=== PATIENT | female | born 1990 | race Caucasian/White ===

== ENCOUNTER 2018-01-01 07:13 | Emergency (ER) | payer MEDICAID, SELFPAY ==
[2018-01-01 07:14] VITALS: BP 143/93; PULSE 75; RESP 17; TEMP 37.1; O2SAT 100; BMI 27.2
--- NOTE | 2018-01-01 07:29 | EKG12_ITS ---
Test Reason : DIZZINESS Blood Pressure : / mmHG Vent. Rate : 066 BPM Atrial Rate : 066 BPM P-R Int : 116 ms QRS Dur : 076 ms QT Int : 376 ms P-R-T Axes : -06 006 026 degrees QTc Int : 394 ms Normal sinus rhythm Normal ECG Confirmed by GLADIS JOHNSON, CRIS ([id number]), society editor REGINA BELL ([id number] on 01/02/2018 3:16:05 PM Referred By: ANJANA Confirmed By:CRIS GRIFFITH MD
--- NOTE | 2018-01-01 07:32 | RAD_ITS ---
STUDY: X-RAY CHEST REASON FOR EXAM: Female, 27 years old. Dizziness and blurred vision. Chills. TECHNIQUE: Single AP portable view of the chest. COMPARISON: Comparison is made with prior study dated March 05, 2017. FINDINGS: The lungs are clear and expanded. There is no demonstrated pleural abnormality. Normal size heart. Normal mediastinum and krystal. Normal visualized pulmonary arteries. Normal visualized aortic arch and descending thoracic aorta. Normal visualized thoracic spine. Normal visualized ribs, clavicles, and shoulders. There is no demonstrated abnormality of the visualized soft tissue structures of the upper abdomen. RAD/Chest 1 View (Portable) IMPRESSION: Normal x-ray examination of the chest. Electronically Signed: Isrrael Lee MD at 8:13 EDT Tel [phone], Service support ,
--- NOTE | 2018-01-01 07:32 | ED.VISSUMM ---
- ER Visit Summary Date of Service: 01/01/18 Chief Complaint: Dizziness History of Present Illness: The patient is a 27 F presents with dizziness which started an hour prior to arrival. Patient states she feels lightheaded but has not passed out. She has blurry vision in both of her eyes. She put her glasses on and that helps some but she continues to have blurry vision. She denies double vision or eye pain. She complains of numbness and weakness in both legs which is chronic. She is on gabapentin. She has chills, nausea, diarrhea. She has a mild cough. She is a smoker. Physical Examination: Vitals are stable. Patient is afebrile. Alert no acute distress. HEENT exam is unremarkable. Neck is supple. No meningismus Lungs are clear and equal bilaterally. Heart is regular rate and rhythm. Abdomen is soft nontender nondistended. Extremities are unremarkable. Skin is warm and dry. No focal neurologic deficit. Normal strength and sensation Remainder of exam is unremarkable. Emergency Department Course and Treatment: Patient given IV fluids, Zofran. EKG is sinus rate of 66 with no acute ischemic changes. Chest x-ray shows no acute process. CBC is normal except for white count 12.7. Chemistries unremarkable. Urinalysis is normal. Patient is feeling improved following fluids and medications. She states she has Zofran at home. She is advised to follow-up with her primary care physician. She is advised return to ED for any worsening complaints. Disposition: Discharge home Impression: Dizziness, resolved This note was generated with [employer] dictation software. It may contain incorrect words, spelling, and punctuation that were not noted in review of the chart prior to signing ED Disposition - Plan for ED Patient: Chief Complaint: Dizziness Referrals: Estela Toribio MD [Primary Care Provider] -
[2018-01-01 08:15] LABS: Bacteria 0 SEEN /hpf (None Seen); Mucous, Urine 0 SEEN /hpf (<or=2+); White Blood Cells 0 SEEN /hpf (0-5)
[2018-01-01 08:36] LABS: Color, Urine Straw (Yellow); Glucose, Dipstick Normal (Normal); Ketone-Dipstick Negative (Negative); Leukocyte Esterase-Dipstick Negative /ul (Negative); Nitrite-Dipstick Negative (Negative); Occult Blood-Urine Negative /ul (Negative); Protein-Dipstick Negative (Negative); Specific Gravity, Urine 1.005 (1.002-1.030); Urine Bilirubin Dipstick Negative (Negative); Urine Clarity Sl. Cloudy (Clear); Urine Urobilinogen Normal (Normal); Urine pH 6.5 (5.0 - 8.0)
[2018-01-01 08:45] LABS: Red Blood Cells-Urine 0-5 SEEN /hpf (0-5); Squamous Epithelial Cells - UA 0-5 SEEN /hpf (5-10)
[2018-01-01 09:24] VITALS: BP 117/75; BP 120/88; BP 132/92; PULSE 62; PULSE 74; PULSE 78
[2018-01-01] MEDS: 0.9% Normal Saline 1,000 ML 1000 ML IV (09:25)
[2018-01-01 09:28] VITALS: BP 132/92; PULSE 67
[2018-01-01 09:36] LABS: Absolute Lymphocyte Count 2.12 X10^3/ul (0.83-4.51); Absolute Neutrophil Count 9.9 X10^3/uL (2.0-7.7); Basophil# 0.03 X10^3/uL; Basophil% 0.2 % (0-1); Eosinophil# 0.08 X10^3/uL; Eosinophils% 0.6 % (0-5); Hemoglobin 13.8 g/dl (12.0-15.0); Lymphocyte # 2.12 X10^3/ul (4.0); Lymphocyte % 16.7 % (19-41); Mean Corp Hgb Conc 32.9 g/gl (32-36); Mean Corpuscular Hgb 28.4 pg (27.0-32.0); Mean Corpuscular Volume 86.4 fL (81-99); Monocyte# 0.52 X10^3/uL; Monocyte% 4.1 % (0-10); Neutrophil # 9.94 X10^3/uL (2.7-7.7); Neutrophil % 78.2 % (47-70); POSITIVE COUNT NO; POSITIVE DIFFERENTIAL NO; POSITIVE MORPHOLOGY NO; Platelet Count 220 K/mm3 (150-450); RBC Distribution Width SD 47.8 fl (35.1-43.9); Red Blood Count 4.86 M/mm3 (4.2-5.4); White Blood Count 12.7 K/mm3 (4.4-11.0)
[2018-01-01 09:46] LABS: Anion Gap 5 (5-15); BUN 11 mg/dL (7-18); BUN/Creat Ratio 15.7 RATIO (10-20); Chloride 112 mmol/L (98-107); EST Glomerular Filtration Rate 106 mL/min (>60); Est Glom Filt Rate - Afr Amer 128 mL/min (>60); Glucose 88 mg/dL (74-106); Sodium Level 144 mmol/L (136-145)
--- NOTE | 2018-01-01 10:37 | ED.DEP ---
ED Disposition - Plan for ED Patient: Chief Complaint: Dizziness Instructions: ED Dizziness [facility] Referrals: Estela Toribio MD [Primary Care Provider] -
[2018-01-01 10:48] VITALS: BP 103/67; PULSE 63; RESP 18
== END 2018-01-01 11:00 | disposition home or self-care (01) ==
PROVIDERS: Emergency Provider Emergency Medicine; Family Provider Internal Medicine; PCP Internal Medicine
DX: R42 Dizziness and giddiness (principal); R19.7 Diarrhea, unspecified; F17.200 Nicotine dependence, unspecified, uncomplicated; Z79.899 Other long term (current) drug therapy
CPT/HCPCS: 71045; 80048; 81001; 85025; 93005; 96360; 99285; J7030; A4216

== ENCOUNTER 2018-04-24 19:07 | Emergency (ER) | payer MEDICAID, SELFPAY ==
[2018-04-24 19:10] VITALS: BP 122/56; PULSE 103; PULSE 110; RESP 14; RESP 18; TEMP 36.9; O2SAT 100; O2SAT 99; BMI 29.1
--- NOTE | 2018-04-24 19:35 | CT_ITS ---
STUDY: CT ABDOMEN AND PELVIS WITHOUT CONTRAST REASON FOR EXAM: Female, 28 years old. Right lower quadrant pain RADIATION DOSAGE (If Supplied By Facility): CTDIvol = ( 8.15 ) mGy, DLP = ( 391.02 ) mGycm TECHNIQUE: Transaxial images were obtained from the dome of the diaphragm to the symphysis pubis without oral contrast, and without intravenous contrast. Sagittal and coronal images were reconstructed. Individualized dose optimization techniques were used for this CT. COMPARISON: 02/13/2016 FINDINGS: Evaluation of the abdominal viscera is limited in the absence of intravenous contrast. The visualized lung bases are clear. The visualized portions of the heart and pericardium are within normal limits. There are no calcified gallstones present. The liver demonstrates an unremarkable unenhanced appearance. There are stable calcified granulomata noted in the spleen. The pancreas demonstrates an unremarkable unenhanced appearance. The adrenal glands are within normal limits. There are no renal or ureteral stones. There is no hydronephrosis. Normal visualized stomach. There is no bowel obstruction or inflammation. There are surgical clips in the region of the appendix consistent with a prior appendectomy. The aorta is normal in caliber. There is no abdominal or pelvic free air, free fluid, fluid collection or lymphadenopathy. There are no destructive osseous lesions. CT/Abdomen/Pelvis without Cont IMPRESSION: No acute abdominal or pelvic pathology demonstrated on this noncontrast CT. Electronically Signed: Tacho Chen, at 20:52 EDT Tel , Service support ,
[2018-04-24 20:00] LABS: Absolute Lymphocyte Count 3.44 X10^3/ul (0.83-4.51); Absolute Neutrophil Count 11.8 X10^3/uL (2.0-7.7); Basophil# 0.04 X10^3/uL; Basophil% 0.2 % (0-1); Eosinophil# 0.12 X10^3/uL; Eosinophils% 0.7 % (0-5); Hematocrit 43.7 % (37-47); Hemoglobin 14.7 g/dl (12.0-15.0); Lymphocyte # 3.44 X10^3/ul (4.0); Lymphocyte % 21.3 % (19-41); Mean Corp Hgb Conc 33.6 g/gl (32-36); Mean Corpuscular Hgb 29.8 pg (27.0-32.0); Mean Corpuscular Volume 88.5 fL (81-99); Mean Platelet Vol. 10.6 fl (6.2-12.0); Monocyte# 0.73 X10^3/uL; Monocyte% 4.5 % (0-10); Neutrophil # 11.82 X10^3/uL (2.7-7.7); Neutrophil % 73.2 % (47-70); Platelet Count 263 K/mm3 (150-450); RBC Distribution Width CV 12.5 % (11.6-14.6); RBC Distribution Width SD 39.9 fl (35.1-43.9); Red Blood Count 4.94 M/mm3 (4.2-5.4); White Blood Count 16.2 K/mm3 (4.4-11.0)
[2018-04-24] MEDS: 0.9% Normal Saline 1,000 ML 125 ML IV (20:01)
[2018-04-24] MEDS: proMETHazine 25 MG/ML Syringe 6.25 MG IV (20:01)
[2018-04-24 20:02] LABS: POSITIVE COUNT NO; POSITIVE DIFFERENTIAL NO; POSITIVE MORPHOLOGY NO
[2018-04-24] MEDS: HYDROmorphone 1 MG/ML Syringe IV (20:02)
[2018-04-24] MEDS: Ketorolac 30 MG/ML Syringe IV (20:02)
[2018-04-24 20:16] LABS: ALB/GLOB Ratio 1.3 RATIO (0.9-2.4); AST(SGOT) 10 U/L (15-37); Alanine Aminotransfer ALT/SGPT 19 U/L (13-56); Albumin, Serum 4.6 g/dL (3.2-5.0); Alkaline Phosphatase 87 U/L (45-117); Anion Gap 6 (5-15); BUN 13 mg/dL (7-18); BUN/Creat Ratio 14.1 RATIO (10-20); Chloride 106 mmol/L (98-107); Creatinine, Serum 0.92 mg/dL (0.55-1.02); EST Glomerular Filtration Rate 77 mL/min (>60); Est Glom Filt Rate - Afr Amer 93 mL/min (>60); Estimated Creatinine Clearance 65.39 ml/min; Globulin 3.5 g/dL (2.2-4.2); Glucose 84 mg/dL (74-106); Potassium 3.5 mmol/L (3.5-5.1); Protein, Total 8.1 g/dL (6.4-8.2); Sodium Level 140 mmol/L (136-145)
[2018-04-24 21:40] VITALS: BP 112/87; PULSE 76; RESP 18; O2SAT 98
[2018-04-24 21:56] LABS: Bacteria 0 SEEN /hpf (None Seen); Mucous, Urine 0 SEEN /hpf (<or=2+); Red Blood Cells-Urine 0 SEEN /hpf (0-5); Squamous Epithelial Cells - UA 0 SEEN /hpf (5-10); White Blood Cells 0 SEEN /hpf (0-5)
[2018-04-24 21:57] LABS: Color, Urine Yellow (Yellow); Glucose, Dipstick Normal (Normal); Ketone-Dipstick Negative (Negative); Leukocyte Esterase-Dipstick Negative /ul (Negative); Nitrite-Dipstick Negative (Negative); Occult Blood-Urine 10 /ul (Negative); Protein-Dipstick 15 mg/dl (Negative); Urine Bilirubin Dipstick Negative (Negative); Urine Clarity Clear (Clear); Urine Urobilinogen Normal (Normal)
--- NOTE | 2018-04-24 22:53 | ED.VISSUMM ---
- ER Visit Summary Date of Service: 04/24/18 Chief Complaint: [Nominal pain] History of Present Illness: The patient is a 28 F [presents to the emergency department complaint of abdominal pain that started around 5:30 PM. Patient states that the pain came on rather suddenly and currently rates an 8 out of 10. Patient states that she vomited very large amount of material that she thought looked like stool. Patient denies fever. Patient is currently on clindamycin to treat dental infection. Patient thinks she has 3 days left of lincomycin. Patient also states that she has had diarrhea for the last week about 3 or 4 episodes a day watery stool. Patient denies urinary symptoms.] Physical Examination: [HEENT-PERRLA, EOMI. Cranial nerves II through XII grossly intact. TMs clear. Mucous membranes moist. No adenopathy. Cardiovascular-regular rate and rhythm without murmur or ectopy Lungs-clear to auscultation, chest wall stable without crepitus or subcu emphysema Abdomen-normoactive bowel sounds, soft. Patient has some mild tenderness periumbilically and right lower quadrant. Negative Castro sign and patient has no real discomfort over the right upper quadrant. There is no rebound, rigidity, or perineal signs. Extremities-intact ?4, normal range of motion, normal pulses, atraumatic] Test Results: [CBC with differential obtained showed an elevated white blood cell count of 16.2, hemoglobin 14.7, hematocrit 44, platelets 263. Chemistries were normal. LFTs were normal. Urinalysis was normal. CT flank showed nothing acute.] Emergency Department Course and Treatment: [Patient was medicated in the emergency department with Toradol, Zofran, and Dilaudid and she had good pain relief with that.] Patient was unable to give a stool sample as wanted to order enteric pathogens and C. difficile. Treatment Plan: [Patient will be discharged home with instructions to follow-up with primary care physician within next 3-5 days. Patient to return if worsening pain, fever, persistent vomiting, or condition should worsen in any way. Patient will be given a prescription to bring in a stool sample for enteric pathogens and C. difficile] Disposition: [Discharged home in stable condition] Impression: [Abdominal pain-etiology uncertain] This note was generated with [employer] software. It may contain incorrect words, spelling, and punctuation that were not noted in review of the chart prior to signing ED Disposition - Plan for ED Patient: Chief Complaint: Abd Pain Referrals: Estela Toribio MD [Primary Care Provider] -
--- NOTE | 2018-04-24 22:56 | ED.DCSUM_ITS ---
- ER Visit Summary Date of Service: 04/24/18 Chief Complaint: [Nominal pain] History of Present Illness: The patient is a 28 F [presents to the emergency department complaint of abdominal pain that started around 5:30 PM. Patient states that the pain came on rather suddenly and currently rates an 8 out of 10. Patient states that she vomited very large amount of material that she thought looked like stool. Patient denies fever. Patient is currently on clindamycin to treat dental infection. Patient thinks she has 3 days left of lincomycin. Patient also states that she has had diarrhea for the last week about 3 or 4 episodes a day watery stool. Patient denies urinary symptoms.] Physical Examination: [HEENT-PERRLA, EOMI. Cranial nerves II through XII grossly intact. TMs clear. Mucous membranes moist. No adenopathy. Cardiovascular-regular rate and rhythm without murmur or ectopy Lungs-clear to auscultation, chest wall stable without crepitus or subcu emphysema Abdomen-normoactive bowel sounds, soft. Patient has some mild tenderness periumbilically and right lower quadrant. Negative Castro sign and patient has no real discomfort over the right upper quadrant. There is no rebound, rigidity , or perineal signs. Extremities-intact ?4, normal range of motion, normal pulses, atraumatic] Test Results: [CBC with differential obtained showed an elevated white blood cell count of 16.2, hemoglobin 14.7, hematocrit 44, platelets 263. Chemistries were normal. LFTs were normal. Urinalysis was normal. CT flank showed nothing acute.] Emergency Department Course and Treatment: [Patient was medicated in the emergency department with Toradol, Zofran, and Dilaudid and she had good pain relief with that.] Patient was unable to give a stool sample as wanted to order enteric pathogens and C. difficile. Treatment Plan: [Patient will be discharged home with instructions to follow-up with primary care physician within next 3-5 days. Patient to return if worsening pain, fever, persistent vomiting, or condition should worsen in any way. Patient will be given a prescription to bring in a stool sample for enteric pathogens and C. difficile] Disposition: [Discharged home in stable condition] Impression: [Abdominal pain-etiology uncertain] This note was generated with [employer] software. It may contain incorrect words, spelling, and punctuation that were not noted in review of the chart prior to signing ED Disposition - Plan for ED Patient: Chief Complaint: Abd Pain Referrals: Estela Toribio MD [Primary Care Provider] -
--- NOTE | 2018-04-24 22:56 | ED.DEP ---
ED Disposition - Plan for ED Patient: Chief Complaint: Abd Pain Instructions: ED Abdominal Pain Unkn Cause Prescriptions: Hydrocodone Bitart/Apap 5-325 [[place] 5MG-325MG] 1 tab PO Q4H PRN PRN 2 Days #10 tab PRN Reason: Pain Ondansetron [Zofran Odt] 4 mg PO Q8H PRN PRN #10 tab PRN Reason: Nausea Referrals: Estela Toribio MD [Primary Care Provider] - 3-5 Days
[2018-04-24 23:12] VITALS: BP 101/63; PULSE 57; RESP 18; O2SAT 98
== END 2018-04-24 23:13 | disposition home or self-care (01) ==
LOC: ED 19:36
PROVIDERS: Emergency Provider Emergency Medicine; Family Provider Internal Medicine; PCP Internal Medicine
DX: R10.31 Right lower quadrant pain (principal); R10.33 Periumbilical pain; R11.2 Nausea with vomiting, unspecified; R19.7 Diarrhea, unspecified; Z72.0 Tobacco use; Z79.899 Other long term (current) drug therapy
CPT/HCPCS: 74176; 80053; 81001; 85025; 96361; 96374; 96375; 99284; J7030; A4216

== ENCOUNTER → 2018-04-25 11:36 | Outpatient (CLI) | payer MEDICAID, SELFPAY | LOC: LAB 11:38 → LABSPEC 11:38 | PROVIDERS: Family Provider Internal Medicine; PCP Internal Medicine; Visit Provider Emergency Medicine | DX: R19.7 Diarrhea, unspecified (principal) | CPT/HCPCS: 87493; 87506 ==

== ENCOUNTER 2019-05-21 07:53 | Emergency (ER) | payer MEDICAID, SELFPAY ==
[2019-05-21 07:54] VITALS: BP 130/98; PULSE 85; RESP 18; TEMP 36.6; O2SAT 100; BMI 31.1
--- NOTE | 2019-05-21 08:19 | ED.DCSUM_ITS ---
- ER Visit Summary Date of Service: 05/21/19 Chief Complaint: Epigastric abdominal pain with nausea and vomiting coffee- ground material History of Present Illness: The patient is a 29 F history of currently being treated for shingles. Prior appendectomy and total hysterectomy. Patient states she is on Valtrex for the shingles. She started having nausea and vomiting this morning. States she is thrown up 3 times and threw up black material coffee-ground like. She is never had a GI bleed before. She denies any black or tarry stools. Complaining of epigastric abdominal pain. No fever. No back pain. Is on no blood thinners. Physical Examination: Young female vital signs are stable afebrile. HEENT exam unremarkable. Neck nontender. Lungs clear to auscultation heart regular rhythm no murmur. Abdomen soft. Epigastric tenderness. No rebound, guarding or rigidity. Right upper and right lower quadrants are unremarkable. He is moving all 4 extremities. Neurologically she is awake and alert. Her left inner thigh there is a rash consistent with shingles. Test Results: CBC shows a white count 11.5. Hemoglobin 14 hematocrit of 42. Chemistries normal normal creatinine and gap. BUN of 14. Liver enzymes normal. Lipase normal. Emergency Department Course and Treatment: Treated with IV fluids, Protonix for possible upper GI bleed and Zofran for nausea. Repeat exam at a.m. Patient is doing well. Abdomen is benign. She feels much better after the IV medications. She was given 1 dose of morphine IV due to her shingles pain but not really for the abdominal pain. She and I went over all of her test results. Do not think she needs any imaging. She denied discussed an NG or OG to evaluate her for an upper GI bleed. She is had one before and absolutely did not want another one at this time. She knows to return immediately if she has black stool or throws up blood. Treatment Plan: Protonix for possible arthritis. Zofran for nausea. Return if worse or follow-up with your doctor for further evaluation. Disposition: dc Impression: Acute epigastric abdominal pain of uncertain cause This note was generated with [employer] software. It may contain incorrect words, spelling, and punctuation that were not noted in review of the chart prior to signing ED Disposition - Plan for ED Patient: Referrals: Estela Toribio MD [Primary Care Provider] -
[2019-05-21] MEDS: Ondansetron 4 MG/2 ML Vial IV (08:56)
[2019-05-21] MEDS: 0.9% Normal Saline 1,000 ML 1000 ML IV (08:56)
[2019-05-21 09:00] LABS: Absolute Lymphocyte Count 3.08 X10^3/uL (0.83-4.51); Absolute Neutrophil Count 7.7 X10^3/uL (2.0-7.7); Basophil# 0.07 X10^3/uL; Basophil% 0.6 % (0-1); Eosinophil# 0.11 X10^3/uL; Hematocrit 42.9 % (37-47); Hemoglobin 14.2 g/dL (12.0-15.0); Lymphocyte # 3.08 X10^3/ul (4.0); Lymphocyte % 26.8 % (19-41); Mean Corp Hgb Conc 33.1 g/dL (32-36); Mean Corpuscular Volume 87.7 fL (81-99); Mean Platelet Vol. 9.8 fl (6.2-12.0); Monocyte# 0.53 X10^3/uL; Monocyte% 4.6 % (0-10); NRBC Flagged by Analyzer 0 % (0-5); Neutrophil # 7.66 X10^3/uL (2.7-7.7); Neutrophil % 66.7 % (47-70); Platelet Count 283 K/mm3 (150-450); RBC Distribution Width CV 12.5 % (11.6-14.6); RBC Distribution Width SD 39.9 fl (35.1-43.9); Red Blood Count 4.89 M/mm3 (4.2-5.4); White Blood Count 11.5 K/mm3 (4.4-11.0)
[2019-05-21 09:10] LABS: AST(SGOT) 19 U/L (15-37); Alanine Aminotransfer ALT/SGPT 24 U/L (13-56); Alkaline Phosphatase 85 U/L (45-117); Anion Gap 6 (5-15); BUN 14 mg/dL (7-18); BUN/Creat Ratio 18.8 RATIO (10-20); Bilirubin, Direct 0.07 mg/dL (0.00-0.30); Calcium,Total 9.3 mg/dL (8.5-10.1); Chloride 107 mmol/L (98-107); Creatinine, Serum 0.74 mg/dL (0.55-1.02); EST Glomerular Filtration Rate 98 mL/min (>60); Est Glom Filt Rate - Afr Amer 118 mL/min (>60); Estimated Creatinine Clearance 84.65 ml/min; Globulin 3.3 g/dL (2.2-4.2); Glucose 86 mg/dL (74-106); Lipase 95 U/L (73-393); Potassium 4.1 mmol/L (3.5-5.1); Protein, Total 7.3 g/dL (6.4-8.2); Sodium Level 142 mmol/L (136-145)
[2019-05-21] MEDS: morphine 8 MG/ML Syringe 6 MG IV (09:30)
--- NOTE | 2019-05-21 10:16 | DCINST.ED_ITS ---
ED Disposition - Plan for ED Patient: Disposition: Home or Assisted Living Instructions: VOMITING (6y-Adult) Prescriptions: Hydrocodone/Acetaminophen [Arnold 5-325 Tablet] 1 ea PO Q4H PRN PRN #14 tab PRN Reason: Pain Prescription Printed Pantoprazole Sodium [Protonix] 40 mg PO DAILY #14 tab Prescription Printed Ondansetron [Zofran Odt] 4 mg PO Q8H PRN PRN #10 tab PRN Reason: Nausea Prescription Printed Referrals: Estela Toribio MD [Primary Care Provider] - 3-5 Days if not improving Additional Instructions: Return if feeling worse or if you throw up blood or have black stool. Protonix or the medication you have at home for reflux and gastritis. Zofran for nausea. Limited Arnold for your shingles pain.
[2019-05-21 10:23] VITALS: BP 121/83; PULSE 61; RESP 12; O2SAT 98
== END 2019-05-21 10:35 | disposition home or self-care (01) ==
PROVIDERS: Emergency Provider Emergency Medicine; Family Provider Internal Medicine; PCP Internal Medicine
DX: R10.13 Epigastric pain (principal); B02.9 Zoster without complications; R11.2 Nausea with vomiting, unspecified
CPT/HCPCS: 80048; 80076; 83690; 85025; 86850; 86900; 86901; 96361; 96374; 96375; 99283; J7030; A4216; J2405; J3490

== ENCOUNTER 2020-06-17 15:59 | Emergency (ER) | payer MEDICAID, SELFPAY ==
[2020-06-17 16:00] VITALS: BP 147/104; PULSE 85; RESP 16; TEMP 36.1; O2SAT 99; BMI 28.3
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
--- NOTE | 2020-06-17 16:17 | CT_ITS ---
STUDY: CT LUMBAR SPINE WITHOUT CONTRAST REASON FOR EXAM: Female, 30 years old. BACK PAIN RADIATION DOSAGE (If Supplied By Facility): CTDIvol = ( 15.31 ) mGy, DLP = ( 467.78 ) mGycm TECHNIQUE: The patient was scanned in a multi detector CT scanner. High resolution transaxial imaging was performed. Images were obtained from T12 to S1. Sagittal and coronal images were reconstructed. Individualized dose optimization techniques were used for this CT. COMPARISON: None FINDINGS: Normal lumbar lordosis. There is no substantial scoliosis. Normal vertebrae of the lumbar spine. L1-2: Normal endplates. Normal disc height and morphology. Normal bilateral facet joints. Normal central canal and bilateral lateral recesses. Normal bilateral intervertebral neural foramina. L2-3: Normal endplates. Normal disc height and morphology. Normal bilateral facet joints. Normal central canal and bilateral lateral recesses. Normal bilateral intervertebral neural foramina. L3-4: Normal endplates. Normal disc height and morphology. Normal bilateral facet joints. Normal central canal and bilateral lateral recesses. Normal bilateral intervertebral neural foramina. L4-5: Normal endplates. Normal disc height and morphology. Normal bilateral facet joints. Normal central canal and bilateral lateral recesses. Normal bilateral intervertebral neural foramina. L5-S1: Normal endplates. Normal disc height and morphology. Normal bilateral facet joints. Normal central canal and bilateral lateral recesses. Normal bilateral intervertebral neural foramina. Normal visualized paraspinous soft tissue structures. CT/Spine Lumbar without Contrast IMPRESSION: Normal unenhanced CT examination of the lumbar spine. Electronically Signed: Catalino Slater MD at 17:10 EDT Tel , Service support ,
--- NOTE | 2020-06-17 16:17 | CT_ITS ---
STUDY: CT THORACIC SPINE WITHOUT CONTRAST REASON FOR EXAM: Female, 30 years old. BACK PAIN RADIATION DOSAGE (If Supplied By Facility): CTDIvol = ( 18.42 ) mGy, DLP = ( 641.06 ) mGycm TECHNIQUE: The patient was scanned in a multi detector CT scanner. High resolution imaging was performed. Images were obtained from C7 to L1. Sagittal and coronal images were reconstructed. Individualized dose optimization techniques were used for this CT. COMPARISON: None. FINDINGS: Normal visualized cervical spine. Normal kyphosis of the thoracic spine. There is no substantial scoliosis. Normal thoracic vertebrae and endplates. Normal disc spaces heights. The soft tissue structures are unremarkable. CT/Spine Thoracic without Contras IMPRESSION: Normal unenhanced CT examination of the thoracic spine. Electronically Signed: Catalino Slater MD at 17:08 EDT Tel , Service support ,
--- NOTE | 2020-06-17 16:48 | RAD_ITS ---
STUDY: X-RAY - LEFT SHOULDER REASON FOR EXAM: Female, 30 years old. UNKNOWN INJURY A FEW DAYS AGO. PAIN POSTERIOR UPPER SHOULDER BLADE AND NUMBNESS DOWN LEFT ARM TECHNIQUE: 4 view(s) of the shoulder. COMPARISON: None. FINDINGS: Normal glenohumeral articulation. Normal acromioclavicular joint. Normal acromion. Normal humeral head and visualized proximal humerus. The soft tissue structures are unremarkable. Normal visualized pulmonary apex. RAD/Shoulder min 2 Views IMPRESSION: Normal x-ray examination of the shoulder. Electronically Signed: Catalino Slater MD at 17:05 EDT Tel , Service support ,
[2020-06-17] MEDS: Triamcinolone Acetonide 40 MG/ML Vial IM (17:37)
[2020-06-17 17:57] VITALS: PULSE 86; RESP 16; O2SAT 98
== END 2020-06-17 17:57 | disposition home or self-care (01) ==
PROVIDERS: Emergency Provider Emergency Medicine; PCP Internal Medicine
DX: M54.6 Pain in thoracic spine (principal); M54.5 Low back pain; R20.2 Paresthesia of skin; S40.012A Contusion of left shoulder, initial encounter; F17.200 Nicotine dependence, unspecified, uncomplicated; X58.XXXA Exposure to other specified factors, initial encounter
CPT/HCPCS: 72128; 72131; 73030; 96372; 99282

== ENCOUNTER 2021-10-22 16:04 | Emergency (ER) | payer MEDICAID, SELFPAY ==
[2021-10-22 16:05] VITALS: BP 130/79; PULSE 106; RESP 15; TEMP 36.4; O2SAT 100; BMI 21.7
--- NOTE | 2021-10-22 16:41 | EDS_ITS ---
HPI History of Present Illness Chief Complaint: Upper Extremity Injury Detail of Chief Complaint: Right shoulder/upper extremity pain and weakness right lower leg and occipi Informant: patient Onset/Context/Timing Onset: Days (Headache for approximately 10+ days, right upper extremity pain x2 days) Context: Sudden Onset Timing: Continuous Quality of Pain: Dull and Aching Current Severity: Mild Maximum Severity: Severe Worsened by: Movement right upper extremity and nothing specific headache Relieved by: Nothing Associated Symptoms Associated Symptoms: Positive for Parasthesia, Weakness, Loss of Funtion and - (The weakness, tingling loss of function in his right lower leg 2 days ago.) Narrative Narrative: Patient is a 31-year-old woman with history of migraine headaches has not had problems with migraine headaches for 2 years. She was recently seen by her PCP and placed on gabapentin. She initially was placed on opiates with no improvement. She denies double vision, blurred vision loss of vision. She does endorse photophobia and sonophobia. She denies rhinorrhea, congestion or postnasal drainage. She denies sore throat. She denies neck pain or neck stiffness. She denies ringing or ears or decreased hearing. She denies respiratory or cardiac symptoms. She does report nausea without vomiting or diarrhea. She denies dysuria, frequency, urgency or hematuria. She is status post hysterectomy. She states 2 days ago she had numbness and when she attempted to stand from a sitting position her leg gave out and she fell into the wall. She was able to drive herself to the emergency department. She states she did use her right arm. Triage note does not document little limp or dragging of her right leg. Prior similar symptoms: Yes Recent Illness/Hospitalization: Yes [facility] Medical History (Updated 10/22/21 @ 17:[address] Gregory Garza MD) Acid reflux Anxiety Depression Hemorrhoids Nausea Numbness and tingling Home Medications NK 06/17/20 [History Last Taken Unknown] naproxen 500 mg PO BID #14 tab 06/17/20 [Rx Last Taken Unknown] Allergy/AdvReac Type Severity Reaction Status Date / Time doxycycline Allergy Shortness Verified 06/17/20 15:59 of breath metronidazole [From Flagyl] AdvReac Diarrhea Verified 06/17/20 15:59 potassium clavulanate AdvReac Diarrhea Verified 06/17/20 15:59 [From Augmentin] trimethoprim [From Bactrim] AdvReac Diarrhea Verified 06/17/20 15:59 Family History Father Cancer Lung cancer Kidney disease Mother Hypertension Surgical History History of recent dental procedure Hx of appendectomy Hx of hysterectomy Social History (Updated 10/22/21 @ 16:[address] Gregory Garza MD) household members: spouse Smoking Status: Current every day smoker tobacco type: cigarettes second hand exposure: No alcohol intake: current substance use type: does not use caffeine: Yes seatbelt use: always ROS ROS ED Constitutional Constitutional ED: Denies chills, fever(s), subjective, sweats or weight loss Eyes Eyes: Reports other Details: Photophobia ; Denies blurry vision, change in vision or diplopia ENT ENT ED: Denies ear pain, rhinorrhea or sore throat Cardiovascular Cardiovascular: Denies chest pain or palpitations Respiratory/Chest Respiratory/Chest: Denies cough or dyspnea Gastrointestinal Gastrointestinal: Reports nausea; Denies abdominal pain, diarrhea, melena or vomiting Genitourinary Genitourinary ED: Denies dysuria, hematuria or urinary frequency Musculoskeletal Musculoskeletal: Denies back pain, myalgias or neck pain Integumentary Denies abscess, Abrasions or rash Neurologic Neurologic: Reports headache(s), paresthesias and weakness Endocrine Endocrinology: Denies polydipsia, polyphagia or polyuria Hematologic/Lymphatic Hematologic/Lymphatic: Denies easy bleeding or easy bruising EXAM Physical Exam Const Vital Signs: 10/22/21 16:05 Temperature 97.6 F L Temperature Source Temporal Pulse Rate 106 H Respiratory Rate 15 Blood Pressure 130/79 H Blood Pressure Mean 96 Pulse Ox 100 Oxygen Delivery Method Room Air Positive well nourished and well developed General Appearance ED: well developed and NAD; Negative for cyanotic or diaphoretic HEENT Reports moist mucous membranes HEENT Narrative: Ears normal. TMs normal. Nares patent. Posterior parents out erythema exudate. Uvula midline. normocephalic and atraumatic Eyes PERRL and EOMs intact bilaterally Eyes Narrative: There is no nystagmus. There is no APD. There is no scleral icterus. Neck full ROM and supple Neck Narrative: There is no cervical lymphadenopathy. Trachea is midline. Resp normal respiratory effort and clear to auscultation bilaterally Cardio regular rate, regular rhythm and no murmurs GI non-tender, non-distended and no masses Auscultation: normoactive bowel sounds Palpation: soft Back/Spine no CVA tenderness Cervical Spine: Negative for cervical spine tenderness Thoracic Spine / Upper Back: Negative for thoracic spinal tenderness Lumbar Spine / Lower Back: Negative for lumbar spinal tenderness Extremity normal to inspection and full ROM General Extremety ED: Negative for edema General Extremity: Negative for edema Neuro oriented x3, CN's II-XII intact bilaterally, moves all extremities and no sensory deficits noted Neuro Narrative: There is no onus or Babinski sign. DTR 2-3+ bicep, brachialis, tricep, patella and ankle. Normal sensation upper and lower extremity. Axillary, median, radial and ulnar function intact. Patient is able to AB duct to 90 degrees. She has difficulty reportedly due to pain. Sensorium / Orientation: alert Motor Exam: strength 5/5 throughout Psych mental status grossly normal Skin Lesions: no lesions Rashes: no rashes Trauma: no lacerations or abrasions; Negative for abrasion MDM MDM MDM Narrative Medical decision making narrative: With history of migraines will treat with IV Benadryl, Reglan and Toradol. Will obtain BMP to assess for electrolyte abnormalities to explain her unusual numb sensation. Presently there are no objective findings with regards to her neurologic exam. Sameera was reassessed at 1745. Headache is resolved. He reports that her arm is still sore. She was informed I am uncertain the cause of her arm discomfort or numbness in the right lower extremity since from a anatomical/neuroanatomy standpoint her symptoms do not point anything in specific. Since she has no neurovascular findings no neurologic deficit imaging is not indicated. Discharge Plan Triage Chief Complaint: Upper Extremity Injury ED Provider: Gregory Garza Dx/Rx/DC Orders Clinical Impression: Occipital headache, Acute pain of right shoulder, Right leg numbness Instructions: Understanding Headache Pain, ED Shoulder Pain, Uncertain Cause Prescriptions: No Action NK RF: 0 naproxen 500 MG tablet 500 mg PO BID Qty: 14 RF: 0 Primary Care Provider: Cruzito Mckeon Referrals: Cruzito Mckeon MD [Primary Care Provider] - 5-7 Days Disposition Disposition: Home, Self Care
[2021-10-22] MEDS: Ketorolac 15 MG/ML Vial IV (16:59)
[2021-10-22] MEDS: Metoclopramide 10 MG/2 ML Vial IV (17:00)
[2021-10-22] MEDS: DiphenhydrAMINE 50 MG/ML Syringe 25 MG IV (17:00)
[2021-10-22 17:09] LABS: Anion Gap 5 (5-15); BUN 15 mg/dL (7-18); BUN/Creat Ratio 17.1 RATIO (10-20); Calcium,Total 9.6 mg/dL (8.5-10.1); Chloride 105 mmol/L (98-107); Creatinine, Serum 0.88 mg/dL (0.55-1.02); EST Glomerular Filtration Rate 80 mL/min (>60); Est Glom Filt Rate - Afr Amer 96 mL/min (>60); Glucose 120 mg/dL (74-106); Potassium 4.2 mmol/L (3.5-5.1); Sodium Level 136 mmol/L (136-145)
== END 2021-10-22 18:17 | disposition home or self-care (01) ==
PROVIDERS: Emergency Provider Emergency Medicine; PCP Family Medicine; Visit Provider Emergency Medicine
DX: M25.511 Pain in right shoulder (principal); R51.9 Headache, unspecified; R20.0 Anesthesia of skin; F17.210 Nicotine dependence, cigarettes, uncomplicated
CPT/HCPCS: 80048; 96374; 96375; 99285; A4216

== ENCOUNTER 2022-04-12 16:48 | Emergency (ER) | payer MEDICAID, SELFPAY ==
[2022-04-12 16:49] VITALS: BP 124/86; PULSE 96; RESP 16; TEMP 36.4; O2SAT 100; BMI 24.9
--- NOTE | 2022-04-12 18:02 | EDS_ITS ---
HPI History of Present Illness HPI Narrative: Patient presents with pain in her left thigh and posterior knee that began yesterday. Patient states it is gradually gotten worse since yesterday. Patient states the pain is constant. Patient describes the pain as dull. Patient states the pain is worse with weightbearing. Patient admits to some bruising over the area but denies any trauma. Patient states that when she stands the blueness gets worse. Patient admits to some weakness in her left leg. Patient denies any paresthesias. Patient states she saw her primary care physician who ordered x-rays and told her that if the pain got worse to go to the emergency department. Chief Complaint: Lower Extremity Injury Informant: patient Onset/Context/Timing Onset: Yesterday Context: Gradual Onset Timing: Continuous Quality of Pain: Dull Location: Left thigh and knee Worsened by: Weightbearing Relieved by: Nothing Associated Symptoms Associated Symptoms: Positive for Weakness; Negative for Parasthesia or Loss of Funtion PFSH [facility] Medical History (Updated 04/12/22 @ 19:[address] Marcelino Watson DO) Acid reflux Anxiety Depression Hemorrhoids Nausea Numbness and tingling Home Medications dextroamphetamine-amphetamine 10 mg tablet 10 mg PO QHS 04/12/22 [History Last Taken Unknown] dextroamphetamine-amphetamine ER 30 mg 24hr capsule,extend release 30 mg PO DAILY 04/12/22 [History Last Taken Unknown] Allergy/AdvReac Type Severity Reaction Status Date / Time doxycycline Allergy Shortness Verified 04/12/22 16:51 of breath metronidazole [From Flagyl] AdvReac Diarrhea Verified 04/12/22 16:51 potassium clavulanate AdvReac Diarrhea Verified 04/12/22 16:51 [From Augmentin] trimethoprim [From Bactrim] AdvReac Diarrhea Verified 04/12/22 16:51 Family History Father Cancer Lung cancer Kidney disease Mother Hypertension Surgical History History of recent dental procedure Hx of appendectomy Hx of hysterectomy Social History household members: spouse Smoking Status: Current every day smoker tobacco type: cigarettes second hand exposure: No alcohol intake: current substance use type: does not use caffeine: Yes seatbelt use: always ROS ROS ED Constitutional Constitutional ED: Denies chills or fever(s) Eyes Eyes: Denies blurry vision or change in vision ENT ENT ED: Denies rhinorrhea or sore throat Cardiovascular Cardiovascular: Denies chest pain or palpitations Respiratory/Chest Respiratory/Chest: Reports cough; Denies dyspnea Gastrointestinal Gastrointestinal: Reports nausea; Denies vomiting Genitourinary Genitourinary ED: Denies dysuria or hematuria Musculoskeletal Musculoskeletal: Reports neck pain; Denies back pain Integumentary Reports rash; Denies abscess Neurologic Neurologic: Reports headache(s) and weakness Hematologic/Lymphatic Hematologic/Lymphatic: Reports easy bruising Allergic/Immunologic Allergic/Immunologic ED: Denies mouth swelling or urticaria EXAM Physical Exam Const Vital Signs: 04/12/22 16:49 04/12/22 19:00 Temperature 97.6 F L Temperature Source Temporal Pulse Rate 96 Respiratory Rate 16 16 Blood Pressure 124/86 H Blood Pressure Mean 98 Pulse Ox 100 Oxygen Delivery Method Room Air Room Air Positive well nourished and well developed General Appearance ED: well developed and NAD HEENT Reports moist mucous membranes Neck full ROM Extremity Extremity Narrative: ROSThere is tenderness, edema, and ecchymosis over the back of the left thigh. There is no deformity noted. There is also some mild ecchymosis in the left popliteal area. There is good range of motion of the left hip, left knee, and left ankle. Posterior tibial pulses and femoral pulses are equal bilaterally. Strength is 5/5 bilaterally in the lower extremities. There are no sensory deficits. Neuro oriented x3, CN's II-XII intact bilaterally, moves all extremities and no sensory deficits noted Sensorium / Orientation: alert Motor Exam: strength 5/5 throughout Psych mental status grossly normal MDM MDM MDM Narrative Medical decision making narrative: Venous duplex of left lower extremity was obtained. There is no evidence of DVT. CBC was within normal limits. PT with INR and PTT were normal. Comprehensive metabolic profile was within normal limits. Patient was advised of her findings. Patient was instructed to keep her leg elevated. Patient was instructed to take Tylenol or ibuprofen as needed for pain. Patient was instructed to follow-up with her primary care physician for further evaluation. Patient understood and was agreeable with the plan. All questions were answered. Lab Data Attestation: I reviewed the patient's lab results. Labs: Laboratory Results - last 24 hr 04/12/22 04/12/22 04/12/22 18:16 18:16 18:16 WBC 9.9 RBC 4.44 Hgb 13.1 Hct 39.3 MCV 88.5 MCH 29.5 MCHC 33.3 RDW Std Deviation 42.5 RDW Coeff of Alexander 13.0 Plt Count 295 MPV 10.4 Immature Gran % (Auto) 0.200 Neut % (Auto) 51.3 Lymph % (Auto) 39.1 [place] % (Auto) 6.9 Eos % (Auto) 1.7 Baso % (Auto) 0.8 Absolute Neuts (auto) 5.1 Absolute Lymphs (auto) 3.87 Nucleated RBC % 0 PT 12.6 INR 1.0 APTT 28.0 Sodium 141 Potassium 4.1 Chloride 110 H Carbon Dioxide 27.0 Anion Gap 4 L BUN 11 Creatinine 0.78 Estim Creat Clear Calc 78.13 Est GFR (MDRD) Af Amer 110 Est GFR (MDRD) Non-Af 91 BUN/Creatinine Ratio 14.1 Glucose 97 Calcium 9.1 Total Bilirubin 0.40 AST 11 L ALT 19 Alkaline Phosphatase 67 Total Protein 6.7 Albumin 3.8 Globulin 2.9 Albumin/Globulin Ratio 1.3 Discharge Plan Triage Chief Complaint: Lower Extremity Injury ED Provider: Marcelino Watson Dx/Rx/DC Orders Clinical Impression: Pain of left lower extremity, Ecchymosis Instructions: ED Pain, Acute, Uncertain Cause Prescriptions: No Action dextroamphetamine-amphetamine 10 mg tablet 10 mg PO QHS Label Comments: TAKE 1 TABLET BY MOUTH ONCE DAILY FOR 30 DAYS dextroamphetamine-amphetamine 30 mg capsule,extended release 24hr 30 mg PO DAILY Label Comments: TAKE 1 CAPSULE BY MOUTH ONCE DAILY FOR 30 DAYS Primary Care Provider: Cruzito Mckeon Referrals: Cruzito Mckeon MD [Primary Care Provider] - 3-5 Days Disposition Disposition: Home, Self Care
--- NOTE | 2022-04-12 18:10 | US_ITS ---
STUDY: VENOUS DOPPLER ULTRASOUND - LEFT LOWER EXTREMITY REASON FOR EXAM: Female, 32 years old. LT LATERAL LEG PAIN/ BRUISING TECHNIQUE: Ultrasound evaluation of the deep vein system to include delgado-scale imaging and compression was performed. Delgado-scale imaging and Doppler sonographic evaluation, including duplex spectral analysis and qualitative color flow sonography, was performed. COMPARISON: None. FINDINGS: Common Femoral Vein: Normal compression, spontaneity and augmentation. Normal color Doppler. Common Femoral Vein/Greater Saphenous Junction: Normal compression, spontaneity and augmentation. Normal color Doppler. Deep Femoral Vein: Normal compression, spontaneity and augmentation. Normal color Doppler. Femoral Proximal: Normal compression, spontaneity and augmentation. Normal color Doppler. Femoral Middle: Normal compression, spontaneity and augmentation. Normal color Doppler. Femoral Distal: Normal compression, spontaneity and augmentation. Normal color Doppler. Popliteal Vein: Normal compression, spontaneity and augmentation. Normal color Doppler. Posterior Tibial Vein: Normal compression, spontaneity and augmentation. Normal color Doppler. Peroneal Vein: Normal compression, spontaneity and augmentation. Normal color Doppler. US/Venous Duplex Imag/Limited/Uni IMPRESSION: Normal venous Doppler ultrasound of the lower extremity. Electronically Signed: Daniel Quijano MD at 19:45 EDT ,
[2022-04-12 18:37] LABS: Absolute Lymphocyte Count 3.87 X10^3/uL (0.83-4.51); Absolute Neutrophil Count 5.1 X10^3/uL (2.0-7.7); Basophil# 0.08 X10^3/uL; Basophil% 0.8 % (0-1); Eosinophil# 0.17 X10^3/uL; Eosinophils% 1.7 % (0-5); Hematocrit 39.3 % (37-47); Hemoglobin 13.1 g/dL (12.0-15.0); Lymphocyte # 3.87 X10^3/ul (0.83-4.51); Lymphocyte % 39.1 % (19-41); Mean Corp Hgb Conc 33.3 g/dL (32-36); Mean Corpuscular Hgb 29.5 pg (27.0-32.0); Mean Corpuscular Volume 88.5 fL (81-99); Mean Platelet Vol. 10.4 fl (6.2-12.0); Monocyte# 0.68 X10^3/uL; Monocyte% 6.9 % (0-10); NRBC Flagged by Analyzer 0 % (0-5); Neutrophil # 5.09 X10^3/uL (2.7-7.7); Neutrophil % 51.3 % (47-70); Platelet Count 295 K/mm3 (150-450); RBC Distribution Width SD 42.5 fl (35.1-43.9); Red Blood Count 4.44 M/mm3 (4.2-5.4); White Blood Count 9.9 K/mm3 (4.4-11.0)
[2022-04-12 18:42] LABS: Prothrombin Time (Protime)PT. 12.6 SECONDS (11.7-14.9)
[2022-04-12 18:49] LABS: ALB/GLOB Ratio 1.3 RATIO (0.9-2.4); AST(SGOT) 11 U/L (15-37); Alanine Aminotransfer ALT/SGPT 19 U/L (13-56); Albumin, Serum 3.8 g/dL (3.2-5.0); Alkaline Phosphatase 67 U/L (45-117); Anion Gap 4 (5-15); BUN 11 mg/dL (7-18); BUN/Creat Ratio 14.1 RATIO (10-20); Calcium,Total 9.1 mg/dL (8.5-10.1); Chloride 110 mmol/L (98-107); Creatinine, Serum 0.78 mg/dL (0.55-1.02); EST Glomerular Filtration Rate 91 mL/min (>60); Est Glom Filt Rate - Afr Amer 110 mL/min (>60); Estimated Creatinine Clearance 78.13 ml/min; Globulin 2.9 g/dL (2.2-4.2); Glucose 97 mg/dL (74-106); Potassium 4.1 mmol/L (3.5-5.1); Protein, Total 6.7 g/dL (6.4-8.2); Sodium Level 141 mmol/L (136-145)
[2022-04-12 19:00] VITALS: RESP 16
== END 2022-04-12 20:00 | disposition home or self-care (01) ==
PROVIDERS: Emergency Provider Emergency Medicine; PCP Family Medicine; Visit Provider Emergency Medicine
DX: M79.652 Pain in left thigh (principal); M25.562 Pain in left knee; X58.XXXA Exposure to other specified factors, initial encounter; R58 Hemorrhage, not elsewhere classified; F17.210 Nicotine dependence, cigarettes, uncomplicated
CPT/HCPCS: 80053; 85025; 85610; 85730; 93971; 99283; A4216

== ENCOUNTER 2022-07-06 18:18 | Emergency (ER) | payer MEDICAID, SELFPAY ==
[2022-07-06 18:19] VITALS: BP 129/103; PULSE 111; RESP 15; TEMP 36.1; O2SAT 98; BMI 23.6
--- NOTE | 2022-07-06 19:39 | ED.RN ---
PT ARRIVES TO ED W/C/O LOSS OF FINE MOTOR SKILLS ON RT SIDE, VALE HAND AND ARM. REPORTS LOSS OF BLADDER FUNCTION WHEN EXTENDING BACK WHILE STANDING. REPORTS HAVING XRAY PREVIOUSLY THAT SHOWED SOMETHING BEING BACKWARDS BUT REPORTS SYMPTOMS CONTINUING TO WORSEN.
[2022-07-06 20:13] LABS: Mucous, Urine 0 SEEN /hpf (<or=2+); Red Blood Cells-Urine 0 SEEN /hpf (0-5); Squamous Epithelial Cells - UA 0 SEEN /hpf (5-10); White Blood Cells 0 SEEN /hpf (0-5)
[2022-07-06] MEDS: Orphenadrine 60 MG/2 ML Ampul IM (20:13)
[2022-07-06] MEDS: Morphine 4 MG/ML Syringe IM (20:13)
--- NOTE | 2022-07-06 20:30 | RAD_ITS ---
STUDY: X-RAY - LUMBAR SPINE REASON FOR EXAM: Female, 32 years old. Injury/Pain TECHNIQUE: 3 view(s) of the lumbar spine were obtained. COMPARISON: None FINDINGS: Normal lumbar lordosis. There is no substantial scoliosis. There is a normal alignment of the vertebrae. Normal vertebral bodies and endplates. Normal disc space heights. The soft tissue structures are unremarkable. RAD/Lumbar Spine 2 or 3 Views IMPRESSION: Normal x-ray examination of the lumbar spine. Electronically Signed: Daniel Quijano MD at 21:07 EDT ,
[2022-07-06 20:38] LABS: Color, Urine Yellow (Yellow); Glucose, Dipstick Normal (Normal); Ketone-Dipstick Negative (Negative); Leukocyte Esterase-Dipstick Negative /ul (Negative); Nitrite-Dipstick Negative (Negative); Occult Blood-Urine Negative /ul (Negative); Protein-Dipstick 30 mg/dl (Negative); Urine Bilirubin Dipstick Negative (Negative); Urine Clarity Sl. Cloudy (Clear); Urine Urobilinogen Normal (Normal)
--- NOTE | 2022-07-06 20:58 | EX.ED.DYSGE1 ---
HPI History of Present Illness Chief Complaint: Weakness Informant: patient Onset/Context/Timing Onset: Days (2) Context: Gradual Onset Timing: Continuous Quality: Sharp and aching Location: Neck and low back Worsened by: Weightbearing and ambulation Relieved by: Nothing Narrative Narrative: Patient presents with neck and back pain that has been getting worse over the last 2 days. Patient states she had x-rays done at another facility which showed some arthritis in her neck. Patient states she is also having pain in her low back now. Patient states her pain radiates down her lower extremities. Patient admits to some numbness and tingling in her lower extremities. Patient states her legs feel weak at times. Patient states her neck pain radiates into her shoulders bilaterally. Patient describes her pain in her neck as sharp. Patient describes her pain in her back as aching. Patient denies any trauma or injury. [facility] Medical History Acid reflux Anxiety Depression Hemorrhoids Leukocytosis Nausea Numbness and tingling Home Medications dextroamphetamine-amphetamine 10 mg tablet 10 mg PO QHS 04/12/22 [History Last Taken Unknown] dextroamphetamine-amphetamine ER 30 mg 24hr capsule,extend release 30 mg PO DAILY 04/12/22 [History Last Taken Unknown] cyclobenzaprine 10 mg tablet 10 mg PO QHS PRN PRN Muscle Spasm #10 TABLETS 07/06/22 [Rx Last Taken Unknown] hydrocodone-acetaminophen 5-325mg 5mg-325mg 1 tab PO Q6H PRN PRN Pain 3 days #10 TABLETS 07/06/22 [Rx Last Taken Unknown] Allergy/AdvReac Type Severity Reaction Status Date / Time doxycycline Allergy Shortness Verified 04/12/22 16:51 of breath metronidazole [From Flagyl] AdvReac Diarrhea Verified 04/12/22 16:51 potassium clavulanate AdvReac Diarrhea Verified 04/12/22 16:51 [From Augmentin] trimethoprim [From Bactrim] AdvReac Diarrhea Verified 04/12/22 16:51 Family History Father Cancer Lung cancer Kidney disease Mother Hypertension Surgical History History of recent dental procedure Hx of appendectomy Hx of hysterectomy Social History household members: spouse Smoking Status: Current every day smoker tobacco type: cigarettes second hand exposure: No alcohol intake: current substance use type: does not use caffeine: Yes seatbelt use: always ROS ROS ED Constitutional Constitutional ED: Denies chills or fever(s) Eyes Eyes: Denies blurry vision or change in vision ENT ENT ED: Denies rhinorrhea or sore throat Cardiovascular Cardiovascular: Denies chest pain or palpitations Respiratory/Chest Respiratory/Chest: Denies cough or dyspnea Gastrointestinal Gastrointestinal: Reports constipation; Denies nausea or vomiting Genitourinary Genitourinary ED: Denies dysuria or hematuria Musculoskeletal Musculoskeletal: Reports back pain and neck pain Integumentary Reports rash; Denies abscess Neurologic Neurologic: Reports paresthesias RLE and LLE and weakness; Denies headache(s) Hematologic/Lymphatic Hematologic/Lymphatic: Reports easy bruising Allergic/Immunologic Allergic/Immunologic ED: Denies mouth swelling or urticaria EXAM Physical Exam Const Vital Signs: 07/06/22 18:19 07/06/22 22:14 Temperature 97.0 F L Temperature Source Temporal Pulse Rate 111 H Respiratory Rate 15 Blood Pressure 129/103 H 110/79 Blood Pressure Mean 111 Pulse Ox 98 Oxygen Delivery Method Room Air Positive well nourished and well developed General Appearance ED: well developed and NAD HEENT Reports moist mucous membranes Neck supple and no JVD Neck Narrative: There is tenderness over the cervical paraspinal muscles. There is no midline tenderness. There is no bony crepitance or step-off. There is no edema or ecchymosis. Range of motion was limited in all motions of the cervical spine secondary to pain. General: tenderness Back/Spine Back/Spine Narrative: There is mild tenderness of the lumbar spine and paraspinal muscles. There is no bony crepitance or step-off. There is good range of motion. Straight leg raises were negative bilaterally. Strength is 5/5 bilaterally in the lower extremities. There is limited effort on the right. Deep tendon reflexes are 2+/4 bilaterally in the lower extremities. Patient admits to some decrease sensation to light touch over the right lower leg and medial aspect of the right thigh. Patient was able to feel painful stimuli over this area. Patient was able to ambulate without difficulty. Extremity normal to inspection General Extremety ED: Negative for tenderness Neuro oriented x3 and CN's II-XII intact bilaterally Sensorium / Orientation: awake and alert Gait (Neuro): normal gait Motor Exam: strength 5/5 throughout Deep Tendon Reflexes: Rt Patellar (L4): 2+, Lt Patellar (L4): 2+, Rt Ankle (S1): 2+ and Lt Ankle (S1): 2+ Deep Tendon Reflexes Back: Rt Patellar (L4): 2+, Lt Patellar (L4): 2+, Rt Ankle (S1): 2+ and Lt Ankle (S1): 2+ Psych mental status grossly normal Skin no rashes or lesions noted MDM MDM MDM Narrative Medical decision making narrative: Patient was given injection of morphine and Norflex here. Urinalysis does not show any evidence of urinary tract infection or hematuria. Patient was able to provide a urine specimen without difficulty. X-rays of the lumbar spine were obtained. There are 3 views. On my interpretation, there is no acute fracture or spondylolisthesis. Radiologist also interpreted the x-rays and agrees. Post void bladder scan was obtained and was only 272 mL of urine in the bladder. I do not feel patient has cauda equina. I do not feel patient needs emergent MRI at this time. Patient was advised of her findings. Patient was given prescriptions for a short course of Flexeril and Sherrill. Patient was instructed to follow-up with her spine surgeon as scheduled at [facility]. Patient understood and was agreeable with the plan. All questions were answered. Lab Data Attestation: I reviewed the patient's lab results. Labs: Laboratory Results - last 24 hr 07/06/22 20:10 Urine Color Yellow Urine Clarity Sl. Cloudy Urine pH 7.0 Ur Specific [place] 1.010 Urine Protein 30 H Urine Glucose (UA) Normal Urine Ketones Negative Urine Occult Blood Negative Urine Nitrite Negative Urine Bilirubin Negative Urine Urobilinogen Normal Ur Leukocyte Esterase Negative Urine RBC 0 SEEN Urine WBC 0 SEEN Ur Squamous Epith Cells 0 SEEN Ur Transition Epith Cell 0-5 SEEN Urine Bacteria 1+ Urine Mucus 0 SEEN Radiography Diagnostic Testing: Clinical Impression(s) from Imaging Studies Lumbar Spine X-Ray 07/06/22 20:30 IMPRESSION: Normal x-ray examination of the lumbar spine. Electronically Signed: Daniel Quijano MD at 21:07 EDT , Discharge Plan Triage Chief Complaint: Weakness ED Provider: Marcelino Watson Dx/Rx/DC Orders Clinical Impression: Acute neck pain, Acute low back pain Instructions: ED Back and Neck Pain, General, ED Pain, Acute, Uncertain Cause Prescriptions: New cyclobenzaprine [cyclobenzaprine] 10 mg tablet 10 mg PO QHS PRN PRN (Reason: Muscle Spasm) Qty: 10 0RF hydrocodone-acetaminophen [hydrocodone-acetaminophen] 5-325 mg tablet 1 tab PO Q6H PRN PRN (Reason: Pain) 3 Days Qty: 10 0RF No Action dextroamphetamine-amphetamine 10 mg tablet 10 mg PO QHS Label Comments: TAKE 1 TABLET BY MOUTH ONCE DAILY FOR 30 DAYS dextroamphetamine-amphetamine 30 mg capsule,extended release 24hr 30 mg PO DAILY Label Comments: TAKE 1 CAPSULE BY MOUTH ONCE DAILY FOR 30 DAYS Primary Care Provider: Cruzito Mckeon Referrals: Cruzito Mckeon MD [Primary Care Provider] - 3-5 Days Disposition Disposition: Home, Self Care Discharge Date/Time: 07/06/22 22:16
[2022-07-06 21:18] LABS: Bacteria 1+ /hpf (None Seen); Transitional Epithelial - Ur 0-5 SEEN /hpf (0-5)
[2022-07-06 22:14] VITALS: BP 110/79
== END 2022-07-06 22:16 | disposition home or self-care (01) ==
PROVIDERS: Emergency Provider Emergency Medicine; PCP Family Medicine; Visit Provider Emergency Medicine
DX: M54.2 Cervicalgia (principal); M54.50 Low back pain, unspecified; F17.210 Nicotine dependence, cigarettes, uncomplicated
CPT/HCPCS: 72100; 81001; 96372; 99283

== ENCOUNTER 2022-11-06 14:53 | Emergency (ER) | payer MEDICAID, SELFPAY ==
[2022-11-06 14:54] VITALS: BP 133/96; PULSE 110; RESP 16; TEMP 35.6; O2SAT 100; BMI 22.3
--- NOTE | 2022-11-06 15:21 | CT_ITS ---
EXAM: CT ABDOMEN AND PELVIS WITH INTRAVENOUS CONTRAST CLINICAL INDICATION: RLQ abd pain, right inguinal pain TECHNIQUE: Helically acquired images were obtained of the abdomen and pelvis with intravenous contrast. This CT exam was performed using one or more of the following dose reduction techniques: automated exposure control, adjustment of the mA and/or kV according to patient size, and/or use of iterative reconstruction technique. This report was created using [employer] report generation technology. CONTRAST: 100 cc of Isovue-370 IV. RADIATION DOSE: CTDIvol = 8.08 mGy, DLP = 313.31 mGy-cm. COMPARISON: 04/24/2018. FINDINGS: LOWER THORAX: Unremarkable. Lung bases are clear. No cardiomegaly. No significant pericardial effusion. ABDOMEN: LIVER: Unremarkable. Homogeneous. No focal mass. GALLBLADDER AND BILE DUCTS: Unremarkable. No calcified gallstones. No gallbladder distention or wall edema. No intra- or extrahepatic biliary ductal dilation. PANCREAS: Unremarkable. No focal cystic or solid mass. SPLEEN: Unremarkable. Normal size without focal cystic or solid mass. ADRENALS: Unremarkable. No nodules. KIDNEYS AND URETERS: Unremarkable. Normal renal size and position. No hydronephrosis. STOMACH AND BOWEL: Unremarkable. No stomach or bowel distention. No focal inflammatory change. PELVIS: APPENDIX: Status post appendectomy. BLADDER: Unremarkable. REPRODUCTIVE: Hysterectomy. ABDOMEN and PELVIS: INTRAPERITONEAL SPACE: Unremarkable. No ascites or other fluid collection. No free air. BONES/JOINTS: Unremarkable. No suspicious lytic or blastic abnormality. SOFT TISSUES: Unremarkable. No discrete abdominal or pelvic wall hernia. VASCULATURE: Unremarkable. Abdominal aorta is non-dilated. LYMPH NODES: Unremarkable. No enlarged lymph nodes. CT/Abdomen/Pelvis W IV Cont ONLY IMPRESSION: 1. No acute abdominal pelvic abnormality. 2. Hysterectomy. 3. Status post appendectomy. Electronically Signed: Brendon Maher MD at 17:25 EST ,
--- NOTE | 2022-11-06 15:29 | EX.ED.DYSGE1 ---
HPI History of Present Illness Chief Complaint: Abd Pain Informant: patient Narrative Narrative: Patient is a 32-year-old female that reports a pretty extensive medical history including kidney stones, inflammatory arthritis that was diagnosed by Dr. Rivera which she was prescribed Plaquenil and prednisone for but has not started, episodes of weakness that she was evaluated for neurology for and prior appendectomy and hysterectomy. She is presenting with right groin pain. States for the past few weeks she has had pain in her right lower quadrant that radiates to her back and is sharp. She states it is worse with movements, walking or physical activity. She notes that around 2-1/2 to 3 weeks ago her 70 pound dog jumped on her and hit her in her right groin. Initially it was swollen but that swelling did go down. She states that when she stands she feels that there is a lump in her groin still. She notes her pains been worse past few days. She states that she is been walking more as well. She took ibuprofen yesterday. She not having thing for pain today. She notes that she has been a little bloated and nauseous but denies any vomiting. She is continue to have bowel movements and denies any change in color. She states her last bowel meant look like it was twisted. She denies any fever. She does have chronic chest pain and shortness of breath which is no change. She also has chronic pain in her right knee and swelling of her leg. She has had a previous venous duplex that was negative. She denies any significant change in the symptoms. She also notes that she has referral to nephrology to be evaluated for proteinuria. Patient denies any rash or skin changes. Finally she reports that she had a painful intercourse 2 days ago and notes that she had some bleeding that was brown/red and then afterwards some red spotting. She states it was not particularly vigorous intercourse. She denies any trauma during intercourse. Denies any abnormal vaginal discharge. Is in a monogamous relationship. No other complaints at this time [facility] Medical History Acid reflux Anxiety Depression Hemorrhoids Leukocytosis Nausea Numbness and tingling Home Medications dextroamphetamine-amphetamine 10 mg tablet 10 mg PO QHS 04/12/22 [History Last Taken Unknown] dextroamphetamine-amphetamine ER 30 mg 24hr capsule,extend release 30 mg PO DAILY 04/12/22 [History Last Taken Unknown] cyclobenzaprine 10 mg tablet 10 mg PO QHS PRN PRN Muscle Spasm #10 TABLETS 07/06/22 [Rx Last Taken Unknown] hydrocodone-acetaminophen 5-325mg 5mg-325mg 1 tab PO Q6H PRN PRN Pain 3 days #10 TABLETS 07/06/22 [Rx Last Taken Unknown] Allergy/AdvReac Type Severity Reaction Status Date / Time doxycycline Allergy Shortness Verified 04/12/22 16:51 of breath metronidazole [From Flagyl] AdvReac Diarrhea Verified 04/12/22 16:51 potassium clavulanate AdvReac Diarrhea Verified 04/12/22 16:51 [From Augmentin] trimethoprim [From Bactrim] AdvReac Diarrhea Verified 04/12/22 16:51 Family History Father Cancer Lung cancer Kidney disease Mother Hypertension Surgical History History of recent dental procedure Hx of appendectomy Hx of hysterectomy Social History household members: spouse Smoking Status: Current every day smoker tobacco type: cigarettes second hand exposure: No alcohol intake: current substance use type: does not use caffeine: Yes seatbelt use: always ROS ROS ED Constitutional Constitutional ED: Denies chills or fever(s) Eyes Eyes: Denies change in vision ENT ENT ED: Denies ear pain Cardiovascular Cardiovascular: Reports palpitations; Denies chest pain Respiratory/Chest Respiratory/Chest: Reports dyspnea; Denies cough Gastrointestinal Gastrointestinal: Reports abdominal pain, nausea and other Details: right groin pain, RLQ pain ; Denies constipation, diarrhea or vomiting Musculoskeletal Musculoskeletal: Reports arthralgias and myalgias Integumentary Denies rash Neurologic Neurologic: Reports weakness; Denies headache(s) or paresthesias Hematologic/Lymphatic Hematologic/Lymphatic: Denies easy bleeding or easy bruising EXAM Physical Exam Const Vital Signs: 11/06/22 14:54 Temperature 96.1 F L Temperature Source Temporal Pulse Rate 110 H Respiratory Rate 16 Blood Pressure 133/96 H Blood Pressure Mean 108 Pulse Ox 100 Oxygen Delivery Method Room Air Positive well nourished and well developed General Appearance ED: well developed; Negative for pallor HEENT Reports moist mucous membranes Eyes PERRL and EOMs intact bilaterally Neck supple Neck Narrative: normal ROM Chest Wall inspection of chest normal Resp normal respiratory effort and clear to auscultation bilaterally Cardio regular rhythm and no murmurs Rate: tachycardic GI non-distended GI Narrative: Tenderness palpation of the right inguinal area. Questionable slight bulge with coughing/bearing down but it is subtle. The area otherwise is soft. No incarcerated or strangulated hernia appreciated based on physical exam. No overlying erythema or skin changes. Auscultation: hyperactive bowel sounds Palpation: soft and tender; Negative for guarding Back/Spine no CVA tenderness Lumbar Spine / Lower Back: Negative for lumbar spinal tenderness Extremity normal to inspection Extremity Narrative: Right knee?this is chronic for patient, no obvious joint effusion General Extremety ED: Yes tenderness; Negative for edema General Extremity: Negative for edema Neuro oriented x3 Sensorium / Orientation: alert Motor Exam: Negative for general weakness Psych mental status grossly normal Mood & Affect: anxious Skin no rashes or lesions noted and no wounds General Skin Exam: Negative for jaundice or pallor MDM MDM MDM Narrative Medical decision making narrative: Patient is evaluated for right groin and right lower quadrant abdominal pain. Differential includes renal colic, inguinal hernia, groin strain, adhesions causing pain given her prior hysterectomy as well as colitis/diverticulitis. She also states that she been having abnormal vaginal discharge. I will obtain a CT abdomen pelvis for further evaluation to rule out any acute intra-abdominal emergency. Given the fact that she has had a total hysterectomy lower suspicion for pelvic inflammatory disease. Her leg pain seems to be chronic and she is previously had a negative DVT study so I do not think repeat of that is indicated. She is started with IV fluids and IV Toradol. The pain is highly reproducible with movement and palpation. Lab work including CBC, CMP and urinalysis largely unremarkable. Urine is negative so low suspicion for ectopic . She does have proteinuria which patient's been referred to nephrology for. No signs of UTI. CT the abdomen pelvis obtained which does not show any acute abnormality. Patient does seem improved after the Toradol and is resting comfortably in bed. Patient counseled that she should alternate ibuprofen and Tylenol. At this time there is does not appear to be an acute surgical emergency or acute infectious process. No findings consistent with a kidney stone. I question if she could have a small inguinal hernia versus groin strain. Patient encouraged to follow-up with surgery is given referral for Dr. Rodas, surgery on-call. She is also clear to follow-up with her CERTIFIED NURSING ASSISTANT for her dyspareunia and postcoital bleeding. Given return precautions. Counseled on signs and symptoms of incarcerated/strangulated hernia. Discharged home in stable condition Lab Data Labs: Laboratory Results - last 24 hr 11/06/22 11/06/22 11/06/22 15:40 15:40 15:40 WBC 10.4 RBC 4.45 Hgb 12.7 Hct 39.3 MCV 88.3 MCH 28.5 MCHC 32.3 RDW Std Deviation 40.7 RDW Coeff of Alexander 12.5 Plt Count 275 MPV 10.3 Immature Gran % (Auto) 0.200 Neut % (Auto) 58.0 Lymph % (Auto) 34.4 [place] % (Auto) 5.5 Eos % (Auto) 1.4 Baso % (Auto) 0.5 Absolute Neuts (auto) 6.0 Absolute Lymphs (auto) 3.57 Nucleated RBC % 0 Sodium 142 Potassium 3.5 Chloride 108 H Carbon Dioxide 27.0 Anion Gap 7 BUN 13 Creatinine 0.70 Estim Creat Clear Calc 87.06 Est GFR (MDRD) Af Amer 124 Est GFR (MDRD) Non-Af 103 BUN/Creatinine Ratio 18.6 Glucose 97 Calcium 8.9 Total Bilirubin 0.20 AST 16 ALT 27 Alkaline Phosphatase 65 Total Protein 6.4 Albumin 3.7 Globulin 2.7 Albumin/Globulin Ratio 1.4 Urine Color Yellow Urine Clarity Sl. Cloudy Urine pH 6.5 Ur Specific [place] 1.010 Urine Protein 30 H Urine Glucose (UA) Normal Urine Ketones Negative Urine Occult Blood Negative Urine Nitrite Negative Urine Bilirubin Negative Urine Urobilinogen Normal Ur Leukocyte Esterase Negative Urine RBC 0-5 SEEN Urine WBC 0-5 SEEN Ur Squamous Epith Cells 0-5 SEEN Urine Bacteria 0 SEEN Urine Mucus 0 SEEN Urine Test Negative Radiography Diagnostic Testing: Clinical Impression(s) from Imaging Studies Abdomen/Pelvis CT 11/06/22 15:21 IMPRESSION: 1. No acute abdominal pelvic abnormality. 2. Hysterectomy. 3. Status post appendectomy. Electronically Signed: Brendon Maher MD at 17:25 EST , Discharge Plan Triage Chief Complaint: Abd Pain ED Provider: Yesy Graf Dx/Rx/DC Orders Clinical Impression: Right inguinal pain, PCB (post coital bleeding) Instructions: ED Pelvic Pain, Unknown Cause Prescriptions: No Action dextroamphetamine-amphetamine 10 mg tablet 10 mg PO QHS Label Comments: TAKE 1 TABLET BY MOUTH ONCE DAILY FOR 30 DAYS dextroamphetamine-amphetamine 30 mg capsule,extended release 24hr 30 mg PO DAILY Label Comments: TAKE 1 CAPSULE BY MOUTH ONCE DAILY FOR 30 DAYS cyclobenzaprine [cyclobenzaprine] 10 mg tablet 10 mg PO QHS PRN PRN (Reason: Muscle Spasm) Qty: 10 0RF hydrocodone-acetaminophen [hydrocodone-acetaminophen] 5-325 mg tablet 1 tab PO Q6H PRN PRN (Reason: Pain) 3 Days Qty: 10 0RF Primary Care Provider: Cruzito Mckeon Referrals: Richard Contreras MD [Med Staff - Active Staff] - As Needed Cruzito Mckeon MD [Primary Care Provider] - Marisel Rodas MD [Med Staff - Active Staff] - As soon as possible Activity Restrictions/Additional Instructions: No signs of obstruction or other acute surgical abnormality on your CT. Your lab work is largely normal. The exact cause of your pain is not clear however I question if you could have a small inguinal hernia versus a strain of your groin. You been given referral for surgery for second opinion/outpatient evaluation. I recommend you also follow-up with CERTIFIED NURSING ASSISTANT. Alternate ibuprofen and Tylenol. Return if you have progression or worsening of your symptoms or further concerns Disposition Disposition: Home, Self Care Discharge Date/Time: 11/06/22 18:35
[2022-11-06] MEDS: Ketorolac 15 MG/ML Vial IV (15:43)
[2022-11-06] MEDS: 0.9% Normal Saline 1,000 ML 1000 ML IV (15:43)
[2022-11-06] MEDS: Ondansetron 4 MG/2 ML Vial IV (15:43)
[2022-11-06 16:03] LABS: Bacteria 0 SEEN /hpf (None Seen); Mucous, Urine 0 SEEN /hpf (<or=2+)
[2022-11-06 16:05] LABS: Absolute Lymphocyte Count 3.57 X10^3/uL (0.83-4.51); Basophil# 0.05 X10^3/uL; Basophil% 0.5 % (0-1); Eosinophil# 0.15 X10^3/uL; Eosinophils% 1.4 % (0-5); Hematocrit 39.3 % (37-47); Hemoglobin 12.7 g/dL (12.0-15.0); Lymphocyte # 3.57 X10^3/ul (0.83-4.51); Lymphocyte % 34.4 % (19-41); Mean Corp Hgb Conc 32.3 g/dL (32-36); Mean Corpuscular Hgb 28.5 pg (27.0-32.0); Mean Corpuscular Volume 88.3 fL (81-99); Mean Platelet Vol. 10.3 fl (6.2-12.0); Monocyte# 0.57 X10^3/uL; Monocyte% 5.5 % (0-10); NRBC Flagged by Analyzer 0 % (0-5); Neutrophil # 6.01 X10^3/uL (2.7-7.7); Platelet Count 275 K/mm3 (150-450); RBC Distribution Width CV 12.5 % (11.6-14.6); RBC Distribution Width SD 40.7 fl (35.1-43.9); Red Blood Count 4.45 M/mm3 (4.2-5.4); White Blood Count 10.4 K/mm3 (4.4-11.0)
[2022-11-06 16:06] LABS: Color, Urine Yellow (Yellow); Glucose, Dipstick Normal (Normal); Ketone-Dipstick Negative (Negative); Leukocyte Esterase-Dipstick Negative /ul (Negative); Nitrite-Dipstick Negative (Negative); Occult Blood-Urine Negative /ul (Negative); Protein-Dipstick 30 mg/dl (Negative); Urine Bilirubin Dipstick Negative (Negative); Urine Clarity Sl. Cloudy (Clear); Urine Urobilinogen Normal (Normal); Urine pH 6.5 (5.0 - 8.0)
[2022-11-06 16:10] LABS: Internal QC Validated? YES +Cl - CLEAR BKGD; Pregnancy, Urine Negative Negative
[2022-11-06 16:12] LABS: Red Blood Cells-Urine 0-5 SEEN /hpf (0-5); Squamous Epithelial Cells - UA 0-5 SEEN /hpf (5-10); White Blood Cells 0-5 SEEN /hpf (0-5)
[2022-11-06 16:22] LABS: ALB/GLOB Ratio 1.4 RATIO (0.9-2.4); AST(SGOT) 16 U/L (15-37); Alanine Aminotransfer ALT/SGPT 27 U/L (13-56); Albumin, Serum 3.7 g/dL (3.2-5.0); Alkaline Phosphatase 65 U/L (45-117); Anion Gap 7 (5-15); BUN 13 mg/dL (7-18); BUN/Creat Ratio 18.6 RATIO (10-20); Calcium,Total 8.9 mg/dL (8.5-10.1); Chloride 108 mmol/L (98-107); EST Glomerular Filtration Rate 103 mL/min (>60); Est Glom Filt Rate - Afr Amer 124 mL/min (>60); Estimated Creatinine Clearance 87.06 ml/min; Globulin 2.7 g/dL (2.2-4.2); Glucose 97 mg/dL (74-106); Potassium 3.5 mmol/L (3.5-5.1); Protein, Total 6.4 g/dL (6.4-8.2); Sodium Level 142 mmol/L (136-145)
== END 2022-11-06 18:35 | disposition home or self-care (01) ==
PROVIDERS: Emergency Provider Emergency Medicine; PCP Family Medicine; Visit Provider Emergency Medicine
DX: R10.31 Right lower quadrant pain (principal); G89.29 Other chronic pain; F17.210 Nicotine dependence, cigarettes, uncomplicated
CPT/HCPCS: 74177; 80053; 81001; 81025; 85025; 96361; 96374; 96375; 99282; J7030; Q9967; A4216; J2405

== ENCOUNTER → 2022-11-08 | Outpatient (CLI) | payer MEDICAID, SELFPAY ==
[2022-11-15 14:23] LABS: HPV APTIMA, High Risk Negative (Negative)
== END | disposition home or self-care (01) ==
LOC: LABSPEC 11:49
PROVIDERS: PCP Family Medicine; Visit Provider Student in an Organized Health Care Education/Training Program
DX: Z12.4 Encounter for screening for malignant neoplasm of cervix (principal)
CPT/HCPCS: 87624; 88175; G0145

== ENCOUNTER → 2022-11-15 | Outpatient (CLI) | payer MEDICAID, SELFPAY ==
--- NOTE | 2022-11-15 14:23 | US_ITS ---
STUDY: ULTRASOUND BREAST - RIGHT REASON FOR EXAM: Female, 32 years old. Palpable lump in the right breast. TECHNIQUE: Axial and longitudinal images of the RIGHT breast were performed with a high resolution ultrasound transducer. # OF IMAGES: 19 COMPARISON: Comparison is made with prior mammogram done earlier in the day. FINDINGS: RIGHT Breast: The upper-outer quadrant of the right breast was examined with ultrasound. There is dense fibroglandular tissue. No sonographic abnormality is seen. US/Breast Limited Unilateral IMPRESSION: No sonographic abnormality is seen. ASSESSMENT CATEGORY: BIRADS Category 1: Negative. A letter regarding these results will be sent to the patient by the facility within 30 days. Electronically Signed: Isrrael Lee MD at 15:34 EST ,
--- NOTE | 2022-11-15 14:23 | BI_ITS ---
MAMMOGRAPHY - BILATERAL DIAGNOSTIC REASON FOR EXAM: Female, 32 years old. Right lateral breast lump. Occasional pain. PERTINENT HISTORY: Aunt with breast cancer. TECHNIQUE: Digital bilateral breast anjel (3D mammographic acquisition) in the CC and MLO projections. 2-D mediolateral oblique (MLO) and craniocaudad (CC) views of both breasts were obtained. CAD: Full Field Digital Mammography with Computer Added Detection was performed. COMPARISON: None. Baseline examination. FINDINGS: Breast Composition: The breasts are extremely dense, which lowers the sensitivity of mammography. There are no dominant masses or suspicious calcifications. No other significant abnormalities are identified. BI/DIAG MAMM W/CAD, BILAT IMPRESSION: Negative diagnostic mammogram. With the patient''s history of a palpable lump in the upper lateral portion of the right breast, targeted ultrasound correlation is recommended. ASSESSMENT CATEGORY: BIRADS Category 0: Incomplete. Need additional imaging evaluation. A letter regarding these results will be sent to the patient by the facility within 30 days. Approximately 10% of breast cancers are not detected by mammography. A normal mammogram should not delay biopsy of a clinically suspicious abnormality. Electronically Signed: Isrrael Lee MD at 15:02 EST ,
== END | disposition home or self-care (01) ==
LOC: OPBI 14:20
PROVIDERS: PCP Family Medicine; Visit Provider Student in an Organized Health Care Education/Training Program
DX: N63.0 Unspecified lump in unspecified breast (principal)
CPT/HCPCS: 77062; 76642; 77066; G0279

== ENCOUNTER 2024-12-27 16:20 | Emergency (ER) | payer OTHER, SELFPAY ==
[2024-12-27 16:21] VITALS: BP 148/93; PULSE 90; RESP 16; TEMP 36.9; O2SAT 98; BMI 30.5
--- NOTE | 2024-12-27 16:43 | CT_ITS ---
PROCEDURE: ABDOMEN/PELVIS W IV CONT ONLY 12/27/2024 REASON FOR EXAM: ABDOMINAL PAIN TECHNIQUE: Abdomen and pelvis CT with intravenous contrast. Coronal and Sagittal reconstruction series were provided. PATIENT PREPARATION: Per protocol ORAL CONTRAST TYPE: None. CONTRAST: Isovue 370 VOLUME: 100 mL One or more dose reduction techniques were used (e.g., Automated exposure control, adjustment of the mA and/or kV according to patient size, use of iterative reconstruction technique. RADIATION DOSE SUMMARY: CTDlvol: 28 mGy DLP: 800 mGycm COMPARISON: None. FINDINGS: Lung bases: Mild pectus excavatum deformity. The lung bases are clear. The heart is normal in size. Liver: The liver is normal in size without focal hepatic mass. The major portal veins are patent. No biliary ductal dilation. Gallbladder: No radiopaque stones within the gallbladder. Spleen: Normal size. Pancreas: Unremarkable. Adrenals: No adrenal mass. Kidneys: No hydronephrosis or nephrolithiasis. Bladder: Decompressed. Reproductive Organs: Prior hysterectomy. Adnexal regions are unremarkable. Bowel: The bowel loops are normal in caliber. No ascites or pneumoperitoneum. Prior appendectomy. Lymph nodes: No suspicious lymph node enlargement. Vasculature: The abdominal aorta and IVC are normal. Bones: No suspicious osseous lesions. CT/Abdomen/Pelvis W IV Cont ONLY IMPRESSION: UNREMARKABLE CONTRAST-ENHANCED CT OF THE ABDOMEN AND PELVIS Reading Location: [facility]
--- NOTE | 2024-12-27 16:45 | EX.ED.DYSGE1 ---
HPI History of Present Illness Chief Complaint: General Illness Detail of Chief Complaint: Not feeling well Informant: patient Narrative Narrative: Patient presents to the emergency department with multiple complaints today. She states that initially she started feeling poorly about 3 weeks ago due to a left upper tooth that required a root canal and then a. At that time she was put on amoxicillin. She went back to the dentist 2 days ago for pain and swelling in the right side of her face and was started on amoxicillin again 875 mg twice a day. She complaining of headache and bodyaches. She is complaining of odd sensations in her arms and legs. She complains of frequent heartburn and upper abdomen pain. She tells me she has had some constipation issues although she did have a small bowel movement 3 days ago. She has a mild cough. She denies sick contacts. [facility] Medical History Acid reflux Anxiety Depression Hemorrhoids Leukocytosis Nausea Numbness and tingling Home Medications ?Medication ?Instructions ?Recorded ?Last Taken ?Type dextroamphetamine-amphetamine 10 10 mg PO QHS 04/12/22 Unknown History mg tablet dextroamphetamine-amphetamine ER 30 mg PO DAILY 04/12/22 Unknown History 30 mg 24hr capsule,extend release cyclobenzaprine 10 mg tablet 10 mg PO QHS PRN PRN Muscle Spasm 07/06/22 Unknown Rx #10 TABLETS hydrocodone-acetaminophen 5-325mg 1 tab PO Q6H PRN PRN Pain 3 days 07/06/22 Unknown Rx 5mg-325mg #10 TABLETS Allergy/AdvReac Type Severity Reaction Status Date / Time doxycycline Allergy Shortness Verified 12/27/24 16:21 of breath metronidazole (From Flagyl) AdvReac Diarrhea Verified 12/27/24 16:21 potassium clavulanate (From AdvReac Diarrhea Verified 12/27/24 16:21 Augmentin) trimethoprim (From Bactrim) AdvReac Diarrhea Verified 12/27/24 16:21 Family History Father Cancer Lung cancer Kidney disease Mother Hypertension Surgical History History of recent dental procedure Hx of appendectomy Hx of hysterectomy Social History household members: spouse Smoking Status: Current every day smoker tobacco type: cigarettes second hand exposure: No alcohol intake: current substance use type: does not use caffeine: Yes seatbelt use: always ROS ROS ED Review of Systems ROS Unobtainable: other Constitutional Constitutional ED: Reports lethargy; Denies chills, fever(s), sweats or weight loss Eyes Eyes: Denies blurry vision, change in vision or diplopia ENT ENT ED: Denies rhinorrhea or sore throat Cardiovascular Cardiovascular: Denies chest pain, orthopnea or racing heartbeat Respiratory/Chest Respiratory/Chest: Reports cough, dyspnea and dyspnea on exertion; Denies orthopnea or sputum Gastrointestinal Gastrointestinal: Reports abdominal pain, constipation and nausea; Denies diarrhea or vomiting Genitourinary Genitourinary ED: Denies dysuria, hematuria or urinary frequency Musculoskeletal Musculoskeletal: Reports myalgias; Denies arthralgias, back pain or neck pain Integumentary Denies abscess, Abrasions or rash Neurologic Neurologic: Reports headache(s); Denies weakness Psychiatric Psychiatric: Reports anxiety; Denies depression or suicidal thoughts Endocrine Endocrinology: Denies polydipsia, polyphagia or polyuria Hematologic/Lymphatic Hematologic/Lymphatic: Denies easy bleeding, easy bruising or lymphadenopathy Allergic/Immunologic Allergic/Immunologic ED: Denies mouth swelling, tongue swelling or urticaria EXAM Physical Exam Const Vital Signs: 12/27/24 16:21 12/27/24 16:39 12/27/24 17:24 Temperature 98.5 F 97.9 F Temperature Source Oral Oral Pulse Rate 90 68 Respiratory Rate 16 61 H Respiratory Effort Normal Respiratory Pattern Normal Blood Pressure 148/93 H 124/89 H Blood Pressure Mean 111 100 Pulse Ox 98 96 Oxygen Delivery Method Room Air Room Air Positive well nourished and well developed General Appearance ED: well developed and NAD HEENT Reports TM's clear and moist mucous membranes HEENT Narrative: Dentition-no gingival erythema or abscesses noted. There is no edema to her face noted and there is no facial cellulitis. No cervical adenopathy noted. She has no nuchal rigidity. normocephalic and atraumatic; Negative for trauma or tenderness Tympanic Membrane ED: Yes TM's clear Eyes PERRL and EOMs intact bilaterally General Eye ED: Negative for pale conjunctiva or scleral icterus Neck no lymphadenopathy, supple and no JVD General: Negative for tenderness Chest Wall inspection of chest normal and palpation of chest normal Chest: Negative for tenderness Resp normal respiratory effort and clear to auscultation bilaterally Effort and Inspection: Negative for respiratory distress or pain with movement Auscultation: Negative for rhonchi, wheezes or diminished lung sounds Cardio regular rate, regular rhythm, S1 normal heart sound, S2 normal heart sound and no murmurs Peripheral Pulses: pulses 2+ throughout GI normal to inspection, nondistended, normoactive bowel sounds, soft to palpation, non-tender, non-distended and no masses GI Narrative: Mild diffuse tenderness in the epigastric region with some guarding. There is no rebound, rigidity, or peritoneal signs. No mass palpated. Back/Spine no CVA tenderness and no thoracic nor lumbar tenderness Extremity normal to inspection General Extremety ED: Negative for edema General Extremity: Negative for edema Neuro oriented x3, CN's II-XII intact bilaterally, no sensory deficits noted and gait normal Neuro Narrative: Negative Kernig's and negative Brudzinski's Sensorium / Orientation: awake, alert, oriented to person, oriented to place and oriented to time Motor Exam: strength 5/5 throughout and strength abnormal Psych mental status grossly normal Skin no rashes or lesions noted and no wounds MDM MDM MDM Narrative Medical decision making narrative: Patient presents the emergency department with multiple complaints. She has had some dental issues and has been now on round 2 of antibiotics. She complains of pressure in her face. She has had a mild cough. She describes fatigue and bodyaches at times she is cold and shaky. Saw her dentist 2 days ago who did some scans of her face and is scheduled to be seen again in January for follow-up. Patient also has history of anxiety and GERD. She has had increased heartburn. She has had some constipation issues. IV line established. CBC with differential obtained showed white count of 10.1 with hemoglobin 12.9 and platelet count of 314. Chemistries were normal. LFTs were normal. Lipase normal at 32. Urinalysis was normal. I did do a CT scan of the abdomen pelvis that was unremarkable. Etiology of symptoms unclear as she has multiple complaints. No signs of obvious dental infection on exam. Some of the congestion in her face she is describing could be due to allergies. Patient advised on MiraLAX if constipation continues. Also advised to take Claritin or Zyrtec as needed for allergy type symptoms. Advised to continue with her amoxicillin. Discharged to home stable condition Lab Data Attestation: I reviewed the patient's lab results. Labs: Laboratory Results - last 24 hr 12/27/24 12/27/24 16:48 16:52 WBC 10.1 RBC 4.60 Hgb 12.9 Hct 39.3 MCV 85.4 MCH 28.0 MCHC 32.8 RDW Std Deviation 38.1 RDW Coeff of [place] 12.4 Plt Count 314 MPV 10.1 Immature Gran % (Auto) 0.300 Neut % (Auto) 54.7 Lymph % (Auto) 35.8 [place] % (Auto) 7.6 Eos % (Auto) 1.0 Baso % (Auto) 0.6 Absolute Neuts (auto) 5.6 Absolute Lymphs (auto) 3.63 Nucleated RBC % 0 Sodium 141 Potassium 3.9 Chloride 104 Carbon Dioxide 24.3 Anion Gap 12 BUN 12 Creatinine 0.75 Estim Creat Clear Calc 96.74 Est GFR (MDRD) Non-Af 107 BUN/Creatinine Ratio 16.6 Glucose 85 Calcium 9.5 Total Bilirubin 0.32 AST 18 ALT 11 Alkaline Phosphatase 74 Total Protein 6.7 Albumin 4.5 Globulin 2.2 Albumin/Globulin Ratio 2.1 Lipase 32 Urine Color Straw Urine Clarity Clear Urine pH 7.0 Ur Specific [place] 1.005 Urine Protein 15 H Urine Glucose (UA) Normal Urine Ketones Negative Urine Occult Blood Negative Urine Nitrite Negative Urine Bilirubin Negative Urine Urobilinogen Normal Ur Leukocyte Esterase Negative Urine RBC 0 SEEN Urine WBC 0-5 SEEN Ur Squamous Epith Cells 0-5 SEEN Urine Bacteria 0 SEEN Urine Mucus 0 SEEN Radiography Diagnostic Testing: Clinical Impression(s) from Imaging Studies Abdomen/Pelvis CT 12/27/24 16:43 IMPRESSION: UNREMARKABLE CONTRAST-ENHANCED CT OF THE ABDOMEN AND PELVIS Reading Location: [facility] Discharge Plan Triage Chief Complaint: General Illness ED Provider: Jame Ross Dx/Rx/DC Orders Clinical Impression: Acid reflux, Constipation, Acute facial pain Instructions: ED Constipation (Adult), ED GERD (Adult), ED Pain, Acute, Uncertain Cause Prescriptions: No Action dextroamphetamine-amphetamine 10 mg tablet 10 mg PO QHS Patient Comments: TAKE 1 TABLET BY MOUTH ONCE DAILY FOR 30 DAYS dextroamphetamine-amphetamine 30 mg capsule,extended release 24hr 30 mg PO DAILY Patient Comments: TAKE 1 CAPSULE BY MOUTH ONCE DAILY FOR 30 DAYS cyclobenzaprine [cyclobenzaprine] 10 mg tablet 10 mg PO QHS PRN PRN (Reason: Muscle Spasm) Qty: 10 0RF hydrocodone-acetaminophen [hydrocodone-acetaminophen] 5-325 mg tablet 1 tab PO Q6H PRN PRN (Reason: Pain) 3 Days Qty: 10 0RF Primary Care Provider: Cruzito Mckeon Referrals: Cruzito Mckeon MD [Primary Care Provider] - 3-5 Days Print Language: Palestinian Disposition Disposition: Home, Self Care
[2024-12-27] MEDS: Lidocaine 2% Viscous15 ML UDC 15 ML PO (16:56)
[2024-12-27] MEDS: 0.9% Normal Saline (1000mL) 1,000 ML 1000 ML IV (16:56)
[2024-12-27] MEDS: Mag Hydrox/Al Hydrox/Simeth 30 ML UDC PO (16:56)
[2024-12-27 17:01] LABS: Absolute Lymphocyte Count 3.63 X10^3/uL (0.83-4.51); Absolute Neutrophil Count 5.6 X10^3/uL (2.0-7.7); Basophil# 0.06 X10^3/uL; Basophil% 0.6 % (0-1); Hematocrit 39.3 % (37-47); Hemoglobin 12.9 g/dL (12.0-15.0); Lymphocyte # 3.63 X10^3/ul (0.83-4.51); Lymphocyte % 35.8 % (19-41); Mean Corp Hgb Conc 32.8 g/dL (32-36); Mean Corpuscular Volume 85.4 fL (81-99); Mean Platelet Vol. 10.1 fl (6.2-12.0); Monocyte# 0.77 X10^3/uL; Monocyte% 7.6 % (0-10); NRBC Flagged by Analyzer 0 % (0-5); Neutrophil # 5.55 X10^3/uL (2.7-7.7); Neutrophil % 54.7 % (47-70); Platelet Count 314 K/mm3 (150-450); RBC Distribution Width CV 12.4 % (11.6-14.6); RBC Distribution Width SD 38.1 fl (35.1-43.9); White Blood Count 10.1 K/mm3 (4.4-11.0)
[2024-12-27 17:05] LABS: Bacteria 0 SEEN /hpf (None Seen); Mucous, Urine 0 SEEN /hpf (<or=2+); Red Blood Cells-Urine 0 SEEN /hpf (0-5)
[2024-12-27 17:11] LABS: Color, Urine Straw (Yellow); Glucose, Dipstick Normal (Normal); Ketone-Dipstick Negative (Negative); Leukocyte Esterase-Dipstick Negative /ul (Negative); Nitrite-Dipstick Negative (Negative); Occult Blood-Urine Negative /ul (Negative); Protein-Dipstick 15 mg/dl (Negative); Specific Gravity, Urine 1.005 (1.002-1.030); Urine Bilirubin Dipstick Negative (Negative); Urine Clarity Clear (Clear); Urine Urobilinogen Normal (Normal)
[2024-12-27 17:24] VITALS: BP 124/89; PULSE 68; RESP 61; TEMP 36.6; O2SAT 96
[2024-12-27 17:37] LABS: ALB/GLOB Ratio 2.1 RATIO (0.9-2.4); AST(SGOT) 18 U/L (<=31); Alanine Aminotransfer ALT/SGPT 11 U/L (<=34); Albumin, Serum 4.5 g/dL (3.5-5.0); Alkaline Phosphatase 74 U/L (35-104); Anion Gap 12 (5-15); BUN 12 mg/dL (4-19); BUN/Creat Ratio 16.6 RATIO (10-20); Calcium,Total 9.5 mg/dL (7.6-11.0); Carbon Dioxide 24.3 mmol/L (21.0-32.0); Chloride 104 mmol/L (98-108); Creatinine, Serum 0.75 mg/dL (0.70-1.20); EST Glomerular Filtration Rate 107 (>60); Estimated Creatinine Clearance 96.74 ml/min (50-250); Globulin 2.2 g/dL (2.2-4.2); Glucose 85 mg/dL (70-99); Lipase 32 U/L (13-75); Potassium 3.9 mmol/L (3.3-5.1); Protein, Total 6.7 g/dL (5.9-8.4); Sodium Level 141 mmol/L (133-145); Total Bilirubin 0.32 mg/dL (0.00-1.30)
[2024-12-27 18:31] LABS: Squamous Epithelial Cells - UA 0-5 SEEN /hpf (5-10); White Blood Cells 0-5 SEEN /hpf (0-5)
[2024-12-27 18:37] VITALS: BP 130/84; PULSE 70; RESP 16; TEMP 36.3; O2SAT 99
== END 2024-12-27 18:41 | disposition home or self-care (01) ==
PROVIDERS: Emergency Provider Emergency Medicine; PCP Family Medicine; Visit Provider Emergency Medicine
DX: R51.9 Headache, unspecified (principal); K21.9 Gastro-esophageal reflux disease without esophagitis; K59.00 Constipation, unspecified; F17.210 Nicotine dependence, cigarettes, uncomplicated
CPT/HCPCS: 74177; 80053; 81001; 83690; 85025; 87631; 96360; 99283; Q9967

== ENCOUNTER 2025-05-13 09:42 | Emergency (ER) | payer OTHER, SELFPAY ==
[2025-05-13 09:43] VITALS: BP 177/89; PULSE 127; RESP 30; TEMP 36.7; O2SAT 100
--- NOTE | 2025-05-13 10:01 | EDS_ITS ---
HPI History of Present Illness Chief Complaint: Chest Pain [facility] Medical History Acid reflux Anxiety Depression Hemorrhoids Leukocytosis Nausea Numbness and tingling Home Medications ?Medication ?Instructions ?Recorded ?Last Taken ?Type dextroamphetamine-amphetamine 10 10 mg PO QHS 04/12/22 Unknown History mg tablet dextroamphetamine-amphetamine ER 30 mg PO DAILY Unknown History 30 mg 24hr capsule,extend release cyclobenzaprine 10 mg tablet 10 mg PO QHS PRN PRN Musc le Spasm 07/06/22 Unknown Rx #10 TABLETS hydrocodone-acetaminophen 5-325mg 1 tab PO Q6H PRN PRN Pain 3 days 07/06/22 Unknown Rx 5mg-325mg #10 TABLETS Allergy/AdvReac Type Severity Reaction Status Date / Time doxycycline Allergy Shortness Verified 12/27/24 16:21 of breath metronidazole (From Flagyl) AdvReac Diarrhea Verified 12/27/24 16:21 potassium clavulanate (From AdvReac Diarrhea Verified 12/27/24 16:21 Augmentin) trimethoprim (From Bactrim) AdvReac Diarrhea Verified 12/27/24 16:21 Family History Father Cancer Lung cancer Kidney disease Mother Hypertension Surgical History History of recent dental procedure Hx of appendectomy Hx of hysterectomy Social History household members: spouse Smoking Status: Current every day smoker tobacco type: cigarettes second hand exposure: No alcohol intake: current substance use type: does not use caffeine: Yes seatbelt use: always EXAM Physical Exam Const Vital Signs: 05/13/25 09:43 Temperature 98.1 F Temperature Source Temporal Pulse Rate 127 H Respiratory Rate 30 H Blood Pressure 177/89 H Blood Pressure Mean 118 Pulse Ox 100 Oxygen Delivery Method Room Air MDM MDM MDM Narrative Medical decision making narrative: HISTORY OF PRESENT ILLNESS: Chief complaint: Chest pain 35-year-old female history of anxiety, depression, GERD Presents with chest pain/rib and back pain and pain with breathing. No symptoms for last 3 weeks. Notes cough with chest and neck pain initially with cough and then more constantly. Notes cough is nonproductive. No fever or sick contacts noted. Denies syncope. Denies leg swelling. Denies PE or DVT risk factors (the patient denies recent surgery in the last 4 weeks or immobilization in the last 3 days, denies previous diagnosis of DVT or PE, hemoptysis, unilateral leg swelling or malignancy with treatment the last 6 months or palliative. No estrogen use noted.). Patient denies sudden onset of pain, no tearing sensation, no migratory symptoms, no new numbness, weakness or loss of sensation. Patient denies family history or personal history of Connective tissue disorders (Marfan's Syndrome, Greta Danlos etc). No bleeding diathesis. REVIEW OF SYSTEMS: Pertinent positives: Chest pain Pertinent negatives: As per HPI PHYSICAL EXAM: Nursing triage notes reviewed, Vital signs reviewed Constitutional: please see [facility] HENT: MMM Eyes: Pupils equal round and reactive to light, Extraocular muscles intact Neck: No stridor, no JVD, full neck ROM Lungs: Clear to auscultation, No wheezing or rales. No increased work of breathing, no conversational dyspnea, no accessory muscle use, no nasal flaring. No respiratory distress noted Heart: Regular rate and rhythm, No murmurs, No rubs and No gallops, 2+ distal pulses (radial, femoral, posterior tibial) in all extremities Abdomen: Soft, there is no tenderness, rigidity, rebound or guarding, no obvious peritoneal signs, no palpable pulsatile abdominal masses, no auscultated abdominal bruit : No CVAT Extremities: No edema Neuro: No new focal neurological deficits, cranial nerves II through XII intact, 5/5 strength in all present extremities. Intact sensation to light touch in all present extremities, 2+ reflexes bilateral patella tendons. Skin: No rash or lesions noted MEDICAL DECISION MAKING: Chief Complaint: please see HPI External records reviewed: Reviewed prior Holter monitor report from 2014 showed normal sinus rhythm Factors affecting care: as per HPI Social determinants of health: Denies illicit drug use History obtained from others: none Consults: none [facility] Narrative: The patient was initially hypertensive with a blood pressure 177/89, tachycardic with a heart rate of 127 and tachypneic with respirate of 30. She is afebrile she is saturating 100% on room air. She is nontoxic-appearing. I considered the following differential diagnosis: ACS, anemia, arrhythmia, electrolyte disturbance, PE, aortic dissection, pneumonia I obtained a broad lab and imaging workup to further determine if the patient was suffering from a life-threatening etiology. Initially treated patient's pain with Toradol ALL IMAGES (IF OBTAINED) HAVE BEEN PERSONALLY REVIEWED AND INTERPRETED BY MYSELF. Initial EKG showed normal sinus rhythm rate of 89, left axis deviation, there is a shortened MT interval but no obvious delta wave to suggest WW, no sign of ARVD or Brugada syndrome The patient and/or family, caregivers express understanding. The patient and/or family, caregivers agrees with the plan. Shared decision making: I will have a discussion with the patient and or visitors regarding risk/benefits of further testing or admission. They will be made aware of of the risk/benefits inherent in this decision they will be given the opportunity to voice understanding. Total critical care time today provided was at least 0 [] minutes. This excludes separately billable procedures. Critical care time (if documented) is secondary to the patient having high probability of clinically significant/life threatening deterioration in the patient's condition which required my urgent intervention. Impression: 1. Chest pain 2. Cough Dispo: [] This note was generated with Caregivers dictation software. It may contain incorrect words, spelling, and punctuation that were not noted in review of the chart prior to signing. Discharge Plan Triage Chief Complaint: Chest Pain ED Provider: Ronny Rocha Dx/Rx/DC Orders Prescriptions: No Action dextroamphetamine-amphetamine 10 mg tablet 10 mg PO QHS Patient Comments: TAKE 1 TABLET BY MOUTH ONCE DAILY FOR 30 DAYS dextroamphetamine-amphetamine 30 mg capsule,extended release 24hr 30 mg PO DAILY Patient Comments: TAKE 1 CAPSULE BY MOUTH ONCE DAILY FOR 30 DAYS cyclobenzaprine [cyclobenzaprine] 10 mg tablet 10 mg PO QHS PRN PRN (Reason: Muscle Spasm) Qty: 10 0RF hydrocodone-acetaminophen [hydrocodone-acetaminophen] 5-325 mg tablet 1 tab PO Q6H PRN PRN (Reason: Pain) 3 Days Qty: 10 0RF Primary Care Provider: Cruzito Mckeon Referrals: Cruzito Mckeon MD [Primary Care Provider] - Print Language: Fijian
--- NOTE | 2025-05-13 10:01 | ED.VIS.CHEST ---
HPI History of Present Illness Chief Complaint: Chest Pain [facility] Medical History Acid reflux Anxiety Depression Hemorrhoids Leukocytosis Nausea Numbness and tingling Home Medications ?Medication ?Instructions ?Recorded ?Last Taken ?Type albuterol sulfate 90 mcg/actuation 2 puff inhalation 4X/DAY wheezing 05/13/25 Unknown History aerosol inhaler azithromycin 250 mg tablet 250 mg PO DAILY 05/13/25 Unknown History buhnlmxhiuerbik-vouyllpgfywmcaf-PA 10 ml PO Q6H PRN cold symptoms 05/13/25 Unknown History 2 mg-30 mg-10 mg/5 mL oral syrup methylprednisolone 4 mg tablets in 4 mg PO UD 05/13/25 Unknown History a dose pack Allergy/AdvReac Type Severity Reaction Status Date / Time doxycycline Allergy Shortness Verified 05/13/25 10:52 of breath metronidazole (From Flagyl) AdvReac Diarrhea Verified 05/13/25 10:52 potassium clavulanate (From AdvReac Diarrhea Verified 05/13/25 10:52 Augmentin) trimethoprim (From Bactrim) AdvReac Diarrhea Verified 05/13/25 10:52 Family History Father Cancer Lung cancer Kidney disease Mother Hypertension Surgical History History of recent dental procedure Hx of appendectomy Hx of hysterectomy Social History household members: spouse Smoking Status: Current every day smoker tobacco type: e-cigarettes second hand exposure: No alcohol intake: current substance use type: does not use caffeine: Yes seatbelt use: always EXAM Physical Exam Const Vital Signs: 05/13/25 09:43 05/13/25 10:45 05/13/25 10:45 Temperature 98.1 F Temperature Source Temporal Pulse Rate 127 H 76 Respiratory Rate 30 H 20 H Respiratory Effort Respiratory Pattern Blood Pressure 177/89 H 153/94 H Blood Pressure Mean 118 113 Pulse Ox 100 100 97 Oxygen Delivery Method Room Air Room Air Room Air 05/13/25 10:45 05/13/25 11:10 05/13/25 12:09 Temperature 96.9 F L Temperature Source Pulse Rate 73 57 L Respiratory Rate 18 16 Respiratory Effort Normal Non-Labored Respiratory Pattern Tachypnea Blood Pressure 139/95 H 135/94 H Blood Pressure Mean 109 107 Pulse Ox 95 100 Oxygen Delivery Method Room Air [facility] [place] Medical decision making narrative: HISTORY OF PRESENT ILLNESS: Chief complaint: Chest pain 35-year-old female history of anxiety, depression, GERD Presents with chest pain/rib and back pain and pain with breathing. No symptoms for last 3 weeks. Notes cough with chest and neck pain initially with cough and then more constantly. Notes cough is nonproductive. No fever or sick contacts noted. Denies syncope. Denies leg swelling. Denies PE or DVT risk factors (the patient denies recent surgery in the last 4 weeks or immobilization in the last 3 days, denies previous diagnosis of DVT or PE, hemoptysis, unilateral leg swelling or malignancy with treatment the last 6 months or palliative. No estrogen use noted.). Patient denies sudden onset of pain, no tearing sensation, no migratory symptoms, no new numbness, weakness or loss of sensation. Patient denies family history or personal history of Connective tissue disorders (Marfan's Syndrome, Greta Danlos etc). No bleeding diathesis. REVIEW OF SYSTEMS: Pertinent positives: Chest pain Pertinent negatives: As per HPI PHYSICAL EXAM: Nursing triage notes reviewed, Vital signs reviewed Constitutional: please see [facility] HENT: MMM Eyes: Pupils equal round and reactive to light, Extraocular muscles intact Neck: No stridor, no JVD, full neck ROM Lungs: Clear to auscultation, No wheezing or rales. No increased work of breathing, no conversational dyspnea, no accessory muscle use, no nasal flaring. No respiratory distress noted Heart: Regular rate and rhythm, No murmurs, No rubs and No gallops, 2+ distal pulses (radial, femoral, posterior tibial) in all extremities Abdomen: Soft, there is no tenderness, rigidity, rebound or guarding, no obvious peritoneal signs, no palpable pulsatile abdominal masses, no auscultated abdominal bruit : No CVAT Extremities: No edema Neuro: No new focal neurological deficits, cranial nerves II through XII intact, 5/5 strength in all present extremities. Intact sensation to light touch in all present extremities, 2+ reflexes bilateral patella tendons. Skin: No rash or lesions noted MEDICAL DECISION MAKING: Chief Complaint: please see HPI External records reviewed: Reviewed prior Holter monitor report from 2013 showed normal sinus rhythm Factors affecting care: as per HPI Social determinants of health: Denies illicit drug use History obtained from others: none Consults: none [facility] Narrative: The patient was initially hypertensive with a blood pressure 177/89, tachycardic with a heart rate of 127 and tachypneic with respirate of 30. She is afebrile she is saturating 100% on room air. She is nontoxic-appearing. Of note per nurse patient complained to charge nurse Wendy that I yelled at her. I Did not yell at her at any point during the visit. I remain respectful and empathetic throughout her visit. I performed an evidence-based lab and imaging evaluation based on her complaint. I considered the following differential diagnosis: ACS, anemia, arrhythmia, electrolyte disturbance, PE, aortic dissection, pneumonia I obtained a broad lab and imaging workup to further determine if the patient was suffering from a life-threatening etiology. Initially treated patient's pain with Toradol ALL IMAGES (IF OBTAINED) HAVE BEEN PERSONALLY REVIEWED AND INTERPRETED BY MYSELF. Initial EKG showed normal sinus rhythm rate of 89, left axis deviation, there is a shortened WI interval but no obvious delta wave to suggest WW, no sign of ARVD or Brugada syndrome I have personally reviewed the patient's chest x-ray. Chest x-ray is unremarkable for pulmonary edema, pneumothorax, pneumonia or focal cardiopulmonary abnormality. High-sensitivity troponin is negative, no evidence of myocardial ischemia (only 1 troponin was ordered as patient's symptoms are going on for 3 weeks) BNP within normal limit suggestive no heart failure CBC leukocytosis suggestive of system inflammation, no anemia or thrombocytopenia BMP without evidence of significant electrolyte abnormalities, no anion gap, no acute kidney injury. D-dimer negative making VTE and dissection less likely The synthesis of the patient's history, physical exam, labs images suggest no acute life or limb threatening etiology. Chest pain etiology is uncertain. Could be inflammatory in origin given elevated white blood cell count. No obvious signs of pneumonia suggest antibiotic initiation. On re-evaluation patient's blood pressure and heart rate resolved after Toradol. Instructed Tylenol and ibuprofen pain control instruction. Patient was evaluated with the assistance of slate cutter operator nurse Colt Canchola present. Conversation remain respectful all questions were answered. The patient and/or family, caregivers express understanding. The patient and/or family, caregivers agrees with the plan. Shared decision making: I will have a discussion with the patient and or visitors regarding risk/benefits of further testing or admission. They will be made aware of of the risk/benefits inherent in this decision they will be given the opportunity to voice understanding. Total critical care time today provided was at least 0 minutes. This excludes separately billable procedures. Critical care time (if documented) is secondary to the patient having high probability of clinically significant/life threatening deterioration in the patient's condition which required my urgent intervention. Impression: 1. Chest pain 2. Cough Dispo: Discharge home This note was generated with [employer] dictation software. It may contain incorrect words, spelling, and punctuation that were not noted in review of the chart prior to signing. Lab Data Labs: Laboratory Results - last 24 hr 05/13/25 10:45 WBC 15.9 H RBC 4.59 Hgb 12.7 Hct 38.0 MCV 82.8 MCH 27.7 MCHC 33.4 RDW Std Deviation 38.4 RDW Coeff of Alexander 12.7 Plt Count 304 MPV 10.2 Immature Gran % (Auto) 0.600 Neut % (Auto) 67.0 Lymph % (Auto) 25.1 [place] % (Auto) 6.7 Eos % (Auto) 0.2 Baso % (Auto) 0.4 Absolute Neuts (auto) 10.6 H Absolute Lymphs (auto) 3.98 Nucleated RBC % 0 D-Dimer Quant (PE/DVT) 0.28 Sodium 141 Potassium 3.6 Chloride 104 Carbon Dioxide 22.9 Anion Gap 14 BUN 12 Creatinine 0.69 L Estim Creat Clear Calc 106.25 Est GFR (MDRD) Non-Af 116 BUN/Creatinine Ratio 16.8 Glucose 100 H Calcium 9.7 Troponin T High Sens < 6 NT pro BNP II 55 Radiography Diagnostic Testing: Clinical Impression(s) from Imaging Studies Chest X-Ray 05/13/25 10:18 IMPRESSION: Lungs appear clear. No pleural effusion or pneumothorax is noted. The cardiomediastinal silhouette is within the normal range. No acute osseous change is seen. Negative examination. Reading Location: [place] [id number] Discharge Plan Triage Chief Complaint: Chest Pain ED Provider: Ronny Rocha Dx/Rx/DC Orders Clinical Impression: Chest pain Instructions: ED Chest Pain, Uncertain Cause Prescriptions: No Action azithromycin 250 mg tablet 250 mg PO DAILY albuterol sulfate 90 mcg/actuation HFA aerosol inhaler 2 puff INHALATION 4X/DAY dizqzeezbunktnb-ggzqgfetz-FJ 2-30-10 mg/5 mL syrup 10 ml PO Q6H PRN (Reason: cold symptoms) methylprednisolone 4 mg tablets,dose pack 4 mg PO UD Primary Care Provider: Cruzito Mckeon Referrals: Cruzito Mckeon MD [Primary Care Provider] - Activity Restrictions/Additional Instructions: Thank you for trusting us with your care today! Your labs images are reassuring. No sign of damage to your heart. No sign of blood clots. No sign of pneumonia, heart failure or other lung disease. Please take Tylenol (2 pills, 650 mg), ibuprofen (2 pills, 400 mg) every 6 hours as needed for pain and fever control. Please return to the emergency department if your symptoms change or worsen. Please follow with your primary care physician for further outpatient evaluation and management. Print Language: Uzbek Disposition Disposition: Home, Self Care Discharge Date/Time: 05/13/25 12:28
--- NOTE | 2025-05-13 10:18 | RAD_ITS ---
PROCEDURE: CHEST 1 VIEW (PORTABLE) 05/13/2025 REASON FOR EXAM: CHEST PAIN TECHNIQUE: AP portable upright view of the chest. COMPARISON: None. RAD/Chest 1 View (Portable) IMPRESSION: Lungs appear clear. No pleural effusion or pneumothorax is noted. The cardiomediastinal silhouette is within the normal range. No acute osseous change is seen. Negative examination. Reading Location: [place] [id number]
--- NOTE | 2025-05-13 10:30 | EKG12_ITS ---
Test Reason : CP Blood Pressure : */* mmHG Vent. Rate : 89 BPM Atrial Rate : 89 BPM P-R Int : 96 ms QRS Dur : 84 ms QT Int : 344 ms P-R-T Axes : -1 -5 28 degrees QTcB Int : 418 ms Sinus rhythm with short MS Nonspecific ST abnormality Abnormal ECG Confirmed by MARVIN RUTLEDGE ([id number]), editorial director SHANELLE DENNIS ([id number]) on 05/15/2025 1:54:10 PM Referred By: Confirmed By: MARVIN RUTLEDGE
[2025-05-13 10:44] VITALS: BMI 31.7
[2025-05-13 10:45] VITALS: BP 153/94; PULSE 76; RESP 20; O2SAT 100; O2SAT 97
[2025-05-13 10:51] LABS: Hematocrit 38.0 % (37-47); Hemoglobin 12.7 g/dL (12.0-15.0); Immature Granulocytes Count 0.090 X10^3/uL (0.0-0.0); Mean Corp Hgb Conc 33.4 g/dL (32-36); Mean Corpuscular Volume 82.8 fL (81-99); Mean Platelet Vol. 10.2 fl (6.2-12.0); NRBC Flagged by Analyzer 0 % (0-5); Platelet Count 304 K/mm3 (150-450); RBC Distribution Width CV 12.7 % (11.6-14.6); RBC Distribution Width SD 38.4 fl (35.1-43.9); Red Blood Count 4.59 M/mm3 (4.2-5.4); White Blood Count 15.9 K/mm3 (4.4-11.0)
[2025-05-13 11:03] LABS: D-Dimer Quantitative (DVT/PE) 0.28 FEU/ug/m (0.27-0.49)
[2025-05-13 11:10] VITALS: BP 139/95; PULSE 73; RESP 18; O2SAT 95
[2025-05-13 11:13] LABS: Anion Gap 14 (5-15); BUN 12 mg/dL (4-19); BUN/Creat Ratio 16.8 RATIO (10-20); Calcium,Total 9.7 mg/dL (7.6-11.0); Carbon Dioxide 22.9 mmol/L (21.0-32.0); Chloride 104 mmol/L (98-108); Estimated Creatinine Clearance 106.25 ml/min (50-250); Glucose 100 mg/dL (70-99); Potassium 3.6 mmol/L (3.3-5.1); Pro- Brain NATRIURETIC PEPTIDE 55 pg/mL (<=450)
[2025-05-13 11:19] LABS: Troponin T High Sensitivity < 6 ng/L (<=14)
[2025-05-13 12:09] VITALS: BP 135/94; PULSE 57; RESP 16; TEMP 36.1; O2SAT 100
--- NOTE | 2025-05-13 12:11 | NURSING ---
Dr. Rocha gave DC instructions citing that there was no life threatening findings in workup indicating pain going forward is to be treated w/ nsaid, tylenol, f/u w/ PCP or possibly pain management. Pt verbalizes understanding but is verbally aggravated after physician leaves room and comments- I am being treated like a drug addict. Active listening provided.
--- NOTE | 2025-05-13 12:28 | ED.RN ---
pt denied any questions at discharge.
== END 2025-05-13 12:28 | disposition home or self-care (01) ==
PROVIDERS: Emergency Provider Emergency Medicine; PCP Family Medicine; Visit Provider Emergency Medicine
DX: R07.9 Chest pain, unspecified (principal); Z90.710 Acquired absence of both cervix and uterus; R05.9 Cough, unspecified; Z90.49 Acquired absence of other specified parts of digestive tract; F17.290 Nicotine dependence, other tobacco product, uncomplicated
CPT/HCPCS: 71045; 80048; 83880; 84484; 85025; 85379; 93005; 96374; 99284; A4216